=== PATIENT | male | born 1970 | race Caucasian/White ===

== ENCOUNTER 2016-06-22 10:42 | Emergency (ER) | payer OTHER ==
[~2016-06-22] VITALS: Ht 170.2 cm; Wt 63.5 kg
[~2016-06-22 10:42] MED LIST: FLUO20CA8 PO; OMEP20CA3 PO; RISP2TAB3 PO; TRAZ100T4 PO
[2016-06-22] MEDS: NS 1,000 ML IV ONE (12:12)
[2016-06-22 12:19] LABS: BASO % 1.1 % (0.0-1.0); EOS # 0.1 K/mm3 (0.0-0.50); EOS % 2.3 % (0.0-3.0); LARGE UNSTAINED CELL # 0.1 K/mm3 (0.0-0.4); LARGE UNSTAINED CELL % 2.7 % (0.0-4.0); LYMPH # 0.9 K/mm3 (1.5-4.5); LYMPH % 19.6 % (24.0-44.0); MEAN CORPUSCULAR HEMOGLOBIN 34.3 pg (27.0-33.0); MEAN CORPUSCULAR VOLUME 100.8 fl (80.0-96.0); MONO # 0.4 K/mm3 (0.0-0.8); MONO % 9.3 % (0.0-5.0); NEUTROPHILS # 2.7 K/mm3 (1.8-7.7); PLATELET COUNT, AUTOMATED 140 k/mm3 (150-450); RED CELL DISTRIBUTION WIDTH 12.4 % (11.5-14.5); WHITE BLOOD COUNT 4.2 K/mm3 (4.0-10.0)
[2016-06-22 12:35] LABS: INR 0.93
--- NOTE | 2016-06-22 12:41 | REP ---
BRAIN CT WITHOUT CONTRAST: HISTORY: Syncope. History of lung carcinoma. COMPARISON STUDY: March 09, 2016. Also reviewed is December 29, 2008 prior study. FINDINGS: Bone window settings demonstrate an intact bony calvarium. No bony destructive lesion is seen. The visualized paranasal sinuses are clear. There is mild distal carotid vascular calcification. Minimal diffuse cerebral atrophy is seen. There is no evidence of intracranial hemorrhage. No extra-axial fluid collection is seen. No mass, infarction, extra-axial fluid collection or midline shift is seen. IMPRESSION: Minimal diffuse atrophy and vascular calcification. No acute intracranial abnormality. Signed by Randall Solis MD 06/22/2016 02:04 P
[2016-06-22 12:43] LABS: ALBUMIN 3.9 GM/DL (3.2-5.2); ALBUMIN/GLOBULIN RATIO 1.22 (1.00-1.93); ALKALINE PHOSPHATASE 129 U/L (45-117); ALT/SGPT 138 U/L (12-78); ANION GAP 13 MEQ/L (8-16); AST/SGOT 104 U/L (15-37); BILIRUBIN,DIRECT 0.2 MG/DL (0.0-0.2); BILIRUBIN,TOTAL 0.4 MG/DL (0.2-1.0); BLOOD UREA NITROGEN 11 MG/DL (7-18); CALCIUM LEVEL 9.5 MG/DL (8.5-10.1); CARBON DIOXIDE LEVEL 24 MEQ/L (21-32); CHLORIDE LEVEL 100 MEQ/L (98-107); GLOMERULAR FILTRATION RATE > 60.0 (>60); GLUCOSE, FASTING 99 MG/DL (70-105); MAGNESIUM LEVEL 2.1 MG/DL (1.8-2.4); POTASSIUM SERUM 4.2 MEQ/L (3.5-5.1); SODIUM LEVEL 137 MEQ/L (136-145); TOTAL PROTEIN 7.1 GM/DL (6.4-8.2)
--- NOTE | 2016-06-22 13:21 | REP ---
Left TIB-fib series: Four views. History: Trauma. Findings: Four views of the left tibia and fibula demonstrate old posttraumatic deformity of the distal tibia and proximal fibula consistent with old fractures. No acute fracture is seen. There is some diffuse osteopenia. Impression: Old posttraumatic deformities. No acute fracture seen. Signed by Randall Solis MD 06/22/2016 02:04 P
--- NOTE | 2016-06-22 13:22 | REP ---
Left foot series: Four views. History: Trauma. Findings: Four views of the left foot show old posttraumatic deformity of the distal tibia. There is mild diffuse osteopenia. On lateral radiograph, there is a chip fracture which appears to be new along this dorsal surface of the tarsal navicular bone seen only on lateral radiograph. No other acute fracture is seen. Impression: Nondisplaced dorsal chip fracture of the tarsal navicular bone. Old posttraumatic changes. Diffuse osteopenia. Signed by Randall Solis MD 06/22/2016 02:04 P
[2016-06-22 13:42] VITALS: BP 162/91
--- NOTE | 2016-06-23 19:43 | ECGEPIP ---
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
== END 2016-06-22 14:02 | disposition home or self-care (01) ==
LOC: M ED 12:09
DX: S92.255A Nondisplaced fracture of navicular [scaphoid] of left foot, initial encounter for closed fracture (principal); R55 Syncope and collapse; X58.XXXA Exposure to other specified factors, initial encounter; Y92.89 Other specified places as the place of occurrence of the external cause; Y93.89 Activity, other specified; Y99.9 Unspecified external cause status

== ENCOUNTER 2016-06-28 17:17 | Emergency (ER) | payer OTHER ==
[~2016-06-28] VITALS: Ht 170.2 cm; Wt 64.9 kg
[2016-06-28] MEDS ORDERED: OXAZEPAM 15 MG CAP PO ONE (18:15)
[2016-06-28] MEDS ORDERED: amLODIPine 5 MG TAB PO ONE (18:15)
[2016-06-28 18:29] VITALS: BP 170/120
--- NOTE | 2016-06-28 20:40 | REPUSA ---
MRI of the lumbar spine without contrast Clinical statement: Pain. Technique: Multiecho multiplanar MRI images of the lumbar spine were obtained without administration of contrast. No comparison is available. Findings: The lumbar vertebral bodies are in satisfactory position and alignment. No fractures or dis locations are demonstrated. Normal heterogeneous bone marrow signal is noted. No osseous tumors are s een. The intervertebral disc heights are well maintained and demonstrate normal signal. The filum ter minale and conus medullaris appear unremarkable. The spinal cord demonstrates normal signal and conto ur. The surrounding soft tissues are within normal limits. The L1/L2 and L2/L3 disc levels are unremarkable. At L3/L4, there is a broad disc osteophyte complex and disc bulge. There is no evidence of disc herni ation or central canal stenosis. There is moderate bilateral neural foraminal narrowing. At L4/L5, there is a large disc bulge with left paracentral disc protrusion measuring 0.9 x 1.5 cm, c ausing severe mass effect on the left anterior thecal sac. There is moderately severe bilateral neura l foraminal narrowing. At L5/S1, there is a broad disc osteophyte complex and disc bulge, eccentric to the right paracentral region, causing significant mass effect on the right anterior thecal sac. There is no evidence of ce ntral canal stenosis. There is severe bilateral neural foraminal narrowing, worse on the right. Impression: 1. Large disc bulge with left paracentral disc protrusion at L4/L5, causing moderate central canal st enosis. Moderately severe bilateral neural foraminal narrowing. 2. Severe disc osteophyte complex and disc bulge at L5/S1 without evidence of central canal stenosis. Severe bilateral neural foraminal narrowing. 3. Moderate disc bulge at L3/L4 causing moderate bilateral neural foraminal narrowing.
[2016-06-28] MEDS ORDERED: dexameTHASONE 20 MG/5 ML VIAL (J1100) IM ONE (23:30)
[2016-06-28] MEDS ORDERED: dexameTHASONE 20 MG/5 ML VIAL (J1100) IV ONE (23:30)
[2016-06-28 23:36] VITALS: BP 117/83
== END 2016-06-28 23:46 | disposition home or self-care (01) ==
LOC: M ED 18:37
DX: M51.9 Unspecified thoracic, thoracolumbar and lumbosacral intervertebral disc disorder (principal); I10 Essential (primary) hypertension; F10.20 Alcohol dependence, uncomplicated; F17.210 Nicotine dependence, cigarettes, uncomplicated; J44.9 Chronic obstructive pulmonary disease, unspecified; Z85.118 Personal history of other malignant neoplasm of bronchus and lung; Z79.899 Other long term (current) drug therapy

== ENCOUNTER → 2016-06-29 | Outpatient (REF) | payer OTHER ==
[2016-06-29 12:43] LABS: ALBUMIN 4.3 GM/DL (3.2-5.2); ALBUMIN/GLOBULIN RATIO 1.39 (1.00-1.93); ALKALINE PHOSPHATASE 133 U/L (45-117); ALT/SGPT 408 U/L (12-78); ANION GAP 11 MEQ/L (8-16); AST/SGOT 290 U/L (15-37); BILIRUBIN,TOTAL 0.7 MG/DL (0.2-1.0); BLOOD UREA NITROGEN 9 MG/DL (7-18); CALCIUM LEVEL 9.6 MG/DL (8.5-10.1); CARBON DIOXIDE LEVEL 26 MEQ/L (21-32); CHLORIDE LEVEL 98 MEQ/L (98-107); CHOLESTEROL LEVEL 193 MG/DL (<200); GLOMERULAR FILTRATION RATE > 60.0 (>60); GLUCOSE, FASTING 149 MG/DL (70-105); POTASSIUM SERUM 4.6 MEQ/L (3.5-5.1); SODIUM LEVEL 135 MEQ/L (136-145); TOTAL PROTEIN 7.4 GM/DL (6.4-8.2); TRIGLYCERIDES LEVEL 65 MG/DL (<150)
[2016-06-29 12:52] LABS: BASO % 0.7 % (0.0-1.0); EOS % 0.5 % (0.0-3.0); LARGE UNSTAINED CELL # 0.1 K/mm3 (0.0-0.4); LYMPH # 0.5 K/mm3 (1.5-4.5); LYMPH % 17.4 % (24.0-44.0); MEAN CORPUSCULAR HEMOGLOBIN 34.4 pg (27.0-33.0); MEAN CORPUSCULAR HGB CONC 33.6 g/dl (32.0-36.5); MEAN CORPUSCULAR VOLUME 102.3 fl (80.0-96.0); MONO # 0.2 K/mm3 (0.0-0.8); MONO % 5.8 % (0.0-5.0); NEUTROPHILS # 1.9 K/mm3 (1.8-7.7); NEUTROPHILS % 73.5 % (36.0-66.0); PLATELET COUNT, AUTOMATED 163 k/mm3 (150-450); RED CELL DISTRIBUTION WIDTH 12.2 % (11.5-14.5); WHITE BLOOD COUNT 2.5 K/mm3 (4.0-10.0)
== END ==
LOC: M SFHCPLAZ 09:19
PROVIDERS: ATTEND Physician Assistant
DX: R79.89 Other specified abnormal findings of blood chemistry (principal)

== ENCOUNTER → 2016-07-18 | Outpatient (REF) | payer OTHER ==
[2016-07-18 14:14] LABS: TOTAL PROTEIN 7.3 GM/DL (6.4-8.2)
[2016-07-18 14:16] LABS: VITAMIN B12 LEVEL 532 PG/ML (247-911)
[2016-07-18 14:17] LABS: FOLATE 8.3 NG/ML (>5.4)
[2016-07-19 12:10] LABS: ALBUMIN % 65.8 % (55.8-66.1); GAMMA GLOBULIN % 9.4 % (11.1-18.8)
== END ==
LOC: M LABNEURO 12:55
PROVIDERS: ATTEND Psychiatry & Neurology Neurology
DX: G62.9 Polyneuropathy, unspecified (principal); E11.9 Type 2 diabetes mellitus without complications

== ENCOUNTER → 2016-07-24 | Outpatient (REF) | payer OTHER ==
[2016-07-24 11:40] LABS: ALBUMIN 4.1 GM/DL (3.2-5.2); ALBUMIN/GLOBULIN RATIO 1.37 (1.00-1.93); ALKALINE PHOSPHATASE 121 U/L (45-117); ALT/SGPT 124 U/L (12-78); ANION GAP 6 MEQ/L (8-16); AST/SGOT 110 U/L (15-37); BILIRUBIN,TOTAL 0.5 MG/DL (0.2-1.0); BLOOD UREA NITROGEN 10 MG/DL (7-18); CALCIUM LEVEL 8.9 MG/DL (8.5-10.1); CARBON DIOXIDE LEVEL 30 MEQ/L (21-32); CHLORIDE LEVEL 104 MEQ/L (98-107); CREATININE FOR GFR 0.61 MG/DL (0.70-1.30); GLOMERULAR FILTRATION RATE > 60.0 (>60); GLUCOSE, FASTING 81 MG/DL (70-105); POTASSIUM SERUM 4.3 MEQ/L (3.5-5.1); SODIUM LEVEL 140 MEQ/L (136-145); TOTAL PROTEIN 7.1 GM/DL (6.4-8.2)
== END ==
LOC: M SFHCPLAZ 08:46
PROVIDERS: ATTEND Physician Assistant
DX: R79.89 Other specified abnormal findings of blood chemistry (principal)

== ENCOUNTER → 2016-10-10 | Outpatient (REF) | payer OTHER ==
[~2016-10-10] MED LIST changes: +TRAZ-136 PO; -TRAZ100T4 PO
[2016-10-10 15:59] LABS: BASO # 0.1 K/mm3 (0.0-0.2); BASO % 1.6 % (0.0-1.0); EOS # 0.1 K/mm3 (0.0-0.50); EOS % 1.9 % (0.0-3.0); LARGE UNSTAINED CELL # 0.2 K/mm3 (0.0-0.4); LARGE UNSTAINED CELL % 4.5 % (0.0-4.0); LYMPH # 0.9 K/mm3 (1.5-4.5); LYMPH % 18.1 % (24.0-44.0); MEAN CORPUSCULAR HEMOGLOBIN 35.2 pg (27.0-33.0); MEAN CORPUSCULAR HGB CONC 34.4 g/dl (32.0-36.5); MEAN CORPUSCULAR VOLUME 102.4 fl (80.0-96.0); MONO # 0.5 K/mm3 (0.0-0.8); MONO % 11.3 % (0.0-5.0); NEUTROPHILS # 2.9 K/mm3 (1.8-7.7); NEUTROPHILS % 62.7 % (36.0-66.0); PLATELET COUNT, AUTOMATED 231 k/mm3 (150-450); RED CELL DISTRIBUTION WIDTH 12.7 % (11.5-14.5); WHITE BLOOD COUNT 4.7 K/mm3 (4.0-10.0)
[2016-10-10 16:16] LABS: ALBUMIN 3.8 GM/DL (3.2-5.2); ALBUMIN/GLOBULIN RATIO 1.23 (1.00-1.93); ALKALINE PHOSPHATASE 111 U/L (45-117); ALT/SGPT 121 U/L (12-78); ANION GAP 11 MEQ/L (8-16); AST/SGOT 89 U/L (15-37); BILIRUBIN,TOTAL 0.3 MG/DL (0.2-1.0); BLOOD UREA NITROGEN 13 MG/DL (7-18); CALCIUM LEVEL 9.1 MG/DL (8.5-10.1); CARBON DIOXIDE LEVEL 25 MEQ/L (21-32); CHLORIDE LEVEL 102 MEQ/L (98-107); CREATININE FOR GFR 0.52 MG/DL (0.70-1.30); GLOMERULAR FILTRATION RATE > 60.0 (>60); GLUCOSE, FASTING 91 MG/DL (70-105); POTASSIUM SERUM 4.1 MEQ/L (3.5-5.1); SODIUM LEVEL 138 MEQ/L (136-145); TOTAL PROTEIN 6.9 GM/DL (6.4-8.2)
== END ==
LOC: M LABDRAW1 15:38
PROVIDERS: ATTEND Physician Assistant
DX: R63.4 Abnormal weight loss (principal)

== ENCOUNTER → 2016-10-16 | Outpatient (CLI) | payer OTHER ==
[~2016-10-16] MED LIST changes: +ISOVUE-370 76% 100ML VIAL (Q9967) As Ordered ONE
--- NOTE | 2016-10-16 23:09 | REP ---
Clinical: New abnormal x-ray findings. Technique: Axial contrast enhanced images from the thoracic inlet to the upper abdomen using 100 ml Isovue 370 intravenous contrast material with coronal and sagittal re-formations. Comparison: 02/09/2016. Findings: Chronic post radiation type changes are appreciated along the medial and parahilar/paramediastinal left lung and right middle lobe which remain relatively stable when compared to prior examination. Subtle small area of increased soft tissue within the post radiation changes along the left major fissure (image 37) currently measuring approximately 14 mm previously measuring 8 mm. Small new subpleural density in the posterior right lower lobe (image 80) currently measuring approximately 10 mm. Underlying mild to moderate emphysematous changes remain stable. Mild subcarinal mediastinal and right hilar lymph nodes are unchanged. No pleural effusion. No pneumothorax. Mediastinum demonstrates normal thoracic aorta, pulmonary vasculature and heart/pericardium. Musculoskeletal structures are intact. Impression: Chronic post radiation type changes and moderate emphysematous changes similar to prior examination. Subtle increased soft tissue in the post radiation changes involving the left lung inseparable from the major fissure as well as subtle increased soft tissue in the subpleural right lower lobe. While these findings may represent progressive chronic changes, active pathology cannot be excluded and 3-6 month follow-up examination may be warranted. Signed by Cade Bermudez MD 10/16/2016 11:00 P
== END ==
LOC: M RAD 11:15
PROVIDERS: ATTEND Physician Assistant
DX: R91.8 Other nonspecific abnormal finding of lung field (principal); R93.8 Abnormal findings on diagnostic imaging of other specified body structures; C34.90 Malignant neoplasm of unspecified part of unspecified bronchus or lung

== ENCOUNTER → 2017-01-29 | Outpatient (REF) | payer OTHER ==
[~2017-01-29] MED LIST changes: -ISOVUE-370 76% 100ML VIAL (Q9967) As Ordered ONE
== END ==
LOC: M LAB REF 12:20
PROVIDERS: ATTEND Surgery
DX: L72.0 Epidermal cyst (principal)

== ENCOUNTER → 2017-05-22 | Outpatient (CLI) | payer OTHER | LOC: M RAD 08:55 | DX: R91.8 Other nonspecific abnormal finding of lung field (principal) | CPT/HCPCS: 71250 ==

== ENCOUNTER → 2017-05-28 | Outpatient (REF) | payer OTHER ==
[2017-05-28 18:21] LABS: PLATELET COUNT, AUTOMATED 161 10^3/uL (150-450)
[2017-05-28 18:31] LABS: INR 0.93; PROTHROMBIN TIME 12.5 SECONDS (12.4-14.5)
== END ==
LOC: M LAB REF 17:10
DX: R91.8 Other nonspecific abnormal finding of lung field (principal)

== ENCOUNTER → 2017-06-10 | Outpatient (CLI) | payer OTHER ==
[~2017-06-10] MED LIST changes: -FLUO20CA8 PO; +LIDOCAINE 1% MDV 20ML VIAL As Ordered; -OMEP20CA3 PO; -RISP2TAB3 PO; -TRAZ-136 PO
== END ==
LOC: M RADPRO 09:10
DX: R91.8 Other nonspecific abnormal finding of lung field (principal); J34.2 Deviated nasal septum; F17.218 Nicotine dependence, cigarettes, with other nicotine-induced disorders; I10 Essential (primary) hypertension; M54.9 Dorsalgia, unspecified; J01.00 Acute maxillary sinusitis, unspecified; Z79.899 Other long term (current) drug therapy; Z85.118 Personal history of other malignant neoplasm of bronchus and lung; Z86.59 Personal history of other mental and behavioral disorders
CPT/HCPCS: 32405

== ENCOUNTER → 2017-09-04 | Outpatient (CLI) | payer OTHER | LOC: M RAD 10:02 | DX: R91.8 Other nonspecific abnormal finding of lung field (principal) | CPT/HCPCS: 71250 ==

== ENCOUNTER → 2017-10-04 | Outpatient (CLI) | payer OTHER | LOC: M RADPRO 08:38 | DX: C34.90 Malignant neoplasm of unspecified part of unspecified bronchus or lung (principal); R91.8 Other nonspecific abnormal finding of lung field; Z79.899 Other long term (current) drug therapy | CPT/HCPCS: 32405 ==

== ENCOUNTER → 2017-10-22 | Outpatient (CLI) | payer OTHER | LOC: M PLARAD 15:36 | DX: C34.90 Malignant neoplasm of unspecified part of unspecified bronchus or lung (principal) | CPT/HCPCS: 78815 ==

== ENCOUNTER 2017-10-31 10:50 | Emergency (ER) | payer OTHER ==
[2017-10-31] MEDS: LIDOCAINE 1% MDV 20ML VIAL IM (13:30)
[2017-10-31] MEDS: ONDANSETRON 4 MG ORAL DISINTEGRATING TAB (Q0162 PER 1MG) PO (13:34)
== END 2017-10-31 14:16 | disposition home or self-care (01) ==
LOC: M ED 10:50
DX: L72.3 Sebaceous cyst (principal); I10 Essential (primary) hypertension; C34.90 Malignant neoplasm of unspecified part of unspecified bronchus or lung; Z79.899 Other long term (current) drug therapy; F17.210 Nicotine dependence, cigarettes, uncomplicated
CPT/HCPCS: Q0162

== ENCOUNTER → 2017-11-05 | Outpatient (CLI) | payer OTHER | LOC: M RAD 09:36 | DX: C34.91 Malignant neoplasm of unspecified part of right bronchus or lung (principal) ==

== ENCOUNTER → 2017-11-06 | Outpatient (CLI) | payer OTHER ==
[~2017-11-06] MED LIST changes: -LIDOCAINE 1% MDV 20ML VIAL As Ordered; +PROHANCE 279.3MG/ML 15ML VIAL (A9576) As Ordered
== END ==
LOC: M RAD 09:22
DX: C34.11 Malignant neoplasm of upper lobe, right bronchus or lung (principal)
CPT/HCPCS: A9576

== ENCOUNTER → 2017-11-26 | Outpatient (REF) | payer OTHER ==
[2017-11-26 14:45] LABS: THYROID STIMULATING HORMONE 0.925 uIU/ML (0.358-3.740)
== END ==
LOC: M LAB REF 13:53
DX: C78.01 Secondary malignant neoplasm of right lung (principal); Z85.118 Personal history of other malignant neoplasm of bronchus and lung; F17.200 Nicotine dependence, unspecified, uncomplicated; I10 Essential (primary) hypertension

== ENCOUNTER 2017-12-11 10:44 | Emergency (ER) | payer OTHER ==
[2017-12-11] MEDS: hydroCHLOROthiazide 25 MG TAB PO (11:23)
[2017-12-11 11:51] LABS: AMORPHOUS SEDIMENT RFX SMALL (NEGATIVE); KETONE, URINE AUTO RFX NEGATIVE (NEGATIVE); LEUKOCYTE ESTERASE UR AUTO RFX NEGATIVE (NEGATIVE); NITRITE, URINE AUTO RFX NEGATIVE (NEGATIVE); RBC, URINE AUTO RFX 2 /HPF (0-3); SPECIFIC GRAVITY UR AUTO RFX 1.012 (1.002-1.035); SQUAM EPITHELIAL CELL UR AURFX 0 /HPF (0-6); WBC, URINE AUTO RFX 1 /HPF (0-3)
[2017-12-11 11:56] LABS: BASO # 0.1 10^3/uL (0.0-0.2); BASO % 1.4 % (0.0-1.0); EOS # 0.1 10^3/uL (0.0-0.50); EOS % 1.2 % (0.0-3.0); HEMATOCRIT 38.3 % (42.0-52.0); HEMOGLOBIN 13.8 g/dl (13.5-17.5); IMMATURE GRANULOCYTE % 0.4 % (0-3.0); LYMPH # 0.8 10^3/uL (1.5-4.5); LYMPH % 15.9 % (24.0-44.0); MEAN CORPUSCULAR HEMOGLOBIN 35.5 pg (27.0-33.0); MEAN CORPUSCULAR VOLUME 98.5 fl (80.0-96.0); MONO # 0.7 10^3/uL (0.0-0.8); MONO % 14.1 % (0.0-5.0); NEUTROPHILS # 3.5 10^3/uL (1.8-7.7); PLATELET COUNT, AUTOMATED 221 10^3/uL (150-450); RED BLOOD COUNT 3.89 10^6/uL (4.30-6.10); RED CELL DISTRIBUTION WIDTH 11.9 % (11.5-14.5); WHITE BLOOD COUNT 5.2 10^3/uL (4.0-10.0)
[2017-12-11 12:28] LABS: ALBUMIN 4.1 GM/DL (3.2-5.2); ALBUMIN/GLOBULIN RATIO 1.21 (1.00-1.93); ALKALINE PHOSPHATASE 114 U/L (45-117); ALT/SGPT 151 U/L (12-78); ANION GAP 9 MEQ/L (8-16); AST/SGOT 96 U/L (7-37); BILIRUBIN,TOTAL 0.4 MG/DL (0.2-1.0); BLOOD UREA NITROGEN 9 MG/DL (7-18); CARBON DIOXIDE LEVEL 31 MEQ/L (21-32); CHLORIDE LEVEL 98 MEQ/L (98-107); CK-MB VALUE MASS 1.1 NG/ML (<3.6); CPK CREATINE PHOSPHOKINASE 227 U/L (39-308); CREATININE FOR GFR 0.57 MG/DL (0.70-1.30); GLOMERULAR FILTRATION RATE > 60.0 (>60); GLUCOSE, FASTING 106 MG/DL (70-100); MB/CK RELATIVE INDEX 0.48 (< OR =4); POTASSIUM SERUM 3.5 MEQ/L (3.5-5.1); SODIUM LEVEL 138 MEQ/L (136-145); TOTAL PROTEIN 7.5 GM/DL (6.4-8.2); TROPONIN I < 0.02 NG/ML (< 0.10)
[2017-12-11] MEDS: NS 1,000 ML IV (13:18)
[2017-12-11] MEDS: KETOROLAC 30 MG/ML VIAL (J1885) IV (13:19)
[2017-12-11] MEDS: ONDANSETRON 4MG/2ML VIAL (J2405) IV (13:19)
[2017-12-11] MEDS: METOPROLOL SUCC (TopROL XL) 50MG **XL** TAB PO (13:23)
[2017-12-11] MEDS: diphenhydrAMINE INJ 50MG/ML VIAL (J1200) IV (13:23)
== END 2017-12-11 14:30 | disposition home or self-care (01) ==
LOC: M ED 10:44
DX: R51 Headache (principal); I10 Essential (primary) hypertension; R94.31 Abnormal electrocardiogram [ECG] [EKG]; G31.9 Degenerative disease of nervous system, unspecified; I67.2 Cerebral atherosclerosis; C34.00 Malignant neoplasm of unspecified main bronchus; F33.9 Major depressive disorder, recurrent, unspecified; F17.200 Nicotine dependence, unspecified, uncomplicated; Z79.899 Other long term (current) drug therapy
CPT/HCPCS: J1200

== ENCOUNTER → 2017-12-24 | Outpatient (REF) | payer OTHER | LOC: M LAB REF 17:32 | DX: Z51.81 Encounter for therapeutic drug level monitoring (principal); Z79.899 Other long term (current) drug therapy; C78.01 Secondary malignant neoplasm of right lung; Z85.118 Personal history of other malignant neoplasm of bronchus and lung; F17.200 Nicotine dependence, unspecified, uncomplicated; I10 Essential (primary) hypertension; R74.0 Nonspecific elevation of levels of transaminase and lactic acid dehydrogenase [LDH] | CPT/HCPCS: 84443 ==

== ENCOUNTER → 2018-01-01 | Outpatient (REF) | payer OTHER | LOC: M LAB REF 13:39 | DX: K62.5 Hemorrhage of anus and rectum (principal) ==

== ENCOUNTER 2018-02-14 11:10 | Day surgery (SDC) | payer OTHER ==
[2018-02-14] MEDS: NS 1,000 ML IV ×2 (11:41)
[2018-02-14] MEDS ORDERED: LIDOCAINE 2% INJ 100 MG/5 ML SDV (FOR ANES.) As Ordered (11:46)
[2018-02-14] MEDS ORDERED: PROPOFOL 200 MG/20 ML VIAL As Ordered ×3 (11:46→13:11)
== END 2018-02-14 14:15 | disposition home or self-care (01) ==
LOC: M OPP 11:10
DX: K92.1 Melena (principal); R19.5 Other fecal abnormalities; R19.7 Diarrhea, unspecified; I10 Essential (primary) hypertension; J44.9 Chronic obstructive pulmonary disease, unspecified; C34.90 Malignant neoplasm of unspecified part of unspecified bronchus or lung; F20.0 Paranoid schizophrenia; M19.90 Unspecified osteoarthritis, unspecified site; F33.9 Major depressive disorder, recurrent, unspecified; F41.9 Anxiety disorder, unspecified; F17.210 Nicotine dependence, cigarettes, uncomplicated; Z98.890 Other specified postprocedural states; Z79.899 Other long term (current) drug therapy
CPT/HCPCS: 45378

== ENCOUNTER → 2018-03-20 | Outpatient (CLI) | payer OTHER ==
[~2018-03-20] MED LIST changes: +GASTROGRAFIN SOLUTION 30ML (Q9963) As Ordered; +ISOVUE-370 76% 100ML VIAL (Q9967) As Ordered; -PROHANCE 279.3MG/ML 15ML VIAL (A9576) As Ordered
== END ==
LOC: M RAD 09:39
DX: C34.31 Malignant neoplasm of lower lobe, right bronchus or lung (principal)
CPT/HCPCS: Q9963

== ENCOUNTER → 2018-04-28 | Outpatient (REF) | payer OTHER ==
[~2018-04-28] MED LIST changes: +BACI50OI TOP; +FLUO20CA8 PO; +GABA-843 PO; -GASTROGRAFIN SOLUTION 30ML (Q9963) As Ordered; +HYDR25TAB PO; +INCR1INH IN; +INCR1INH INH; -ISOVUE-370 76% 100ML VIAL (Q9967) As Ordered; +LISI10TA4 PO; +OMEP-221 PO; +OMEP20CA3 PO; +OMEP40CA2 PO; +RISP2TAB3 PO; +SPIR1CAP INH; +TRAZ-163 PO; +VENTAER INH; +ZOFR4TAB14 PO
[2018-04-28 16:04] LABS: BLOOD UREA NITROGEN 10 MG/DL (7-18); CALCIUM LEVEL 8.8 MG/DL (8.5-10.1); CARBON DIOXIDE LEVEL 27 MEQ/L (21-32); CHLORIDE LEVEL 99 MEQ/L (98-107); CHOLESTEROL LEVEL 197 MG/DL (<200); CREATININE FOR GFR 0.58 MG/DL (0.70-1.30); GLOMERULAR FILTRATION RATE > 60.0 (>60); GLUCOSE, FASTING 90 MG/DL (70-100); HDL CHOLESTEROL 86 MG/DL (>40); LDL CHOLESTEROL 93 MG/DL (<100); NON-HDL-C 111 MG/DL; POTASSIUM SERUM 4.3 MEQ/L (3.5-5.1); SODIUM LEVEL 136 MEQ/L (136-145); TRIGLYCERIDES LEVEL 92 MG/DL (<150)
[2018-04-28 17:57] LABS: CREATININE, URINE 98.8 MG/DL; MALB URINE SIEMENS 59.9 MG/L; MAU/CREAT RATIO 60.6 MCG/MG (0.0-30.0)
== END ==
LOC: M SFHCPLAZ 13:05
PROVIDERS: ATTEND Family Medicine
DX: I16.0 Hypertensive urgency (principal)

== ENCOUNTER → 2018-06-23 | Outpatient (CLI) | payer OTHER ==
[~2018-06-23] MED LIST changes: +PROHANCE 279.3MG/ML 15ML VIAL (A9576) As Ordered ONE
--- NOTE | 2018-06-23 14:23 | REP ---
MR BRAIN WITHOUT and with _ CONTRAST: HISTORY: Lung carcinoma. CONTRAST: ProHance 12.4 mL. COMPARISON: 11/06/2017 Areas of increased signal intensity on T2-weighted images are present in the periventricular and subcortical white matter. This represents small vessel ischemic disease. There is no intraparenchymal hemorrhage, infarct, mass, or midline shift. There is no abnormal enhancement. The ventricular system and cortical sulci are dilated, consistent with minimal volume loss. There is no extracerebral collection. Mucosal thickening is present in the left maxillary sinus. IMPRESSION: 1. Small vessel ischemic disease. 2. Minimal volume loss. Electronically Signed by Miguel Angel Jackson MD 06/23/2018 02:33 P
== END ==
LOC: M RAD 12:48
PROVIDERS: ATTEND Nurse Practitioner Family
DX: C34.31 Malignant neoplasm of lower lobe, right bronchus or lung (principal); C34.01 Malignant neoplasm of right main bronchus; I67.82 Cerebral ischemia; G31.9 Degenerative disease of nervous system, unspecified; R51 Headache
CPT/HCPCS: 70553; A9576

== ENCOUNTER → 2018-06-24 | Outpatient (CLI) | payer OTHER ==
[~2018-06-24] MED LIST changes: +GASTROGRAFIN SOLUTION 30ML (Q9963) As Ordered ONE; +ISOVUE-370 76% 125ML VIAL (Q9967 PER ML) As Ordered ONE; -PROHANCE 279.3MG/ML 15ML VIAL (A9576) As Ordered ONE
--- NOTE | 2018-06-25 07:02 | REP ---
Clinical: History of adenocarcinoma of the lung. Technique: Axial contrast enhanced images from the thoracic inlet to the upper abdomen with coronal and sagittal re-formations using 100 ml Isovue 370 intravenous contrast material. Comparison: 03/20/2018. Findings: Chronic COPD/emphysematous changes as well as chronic post radiation type fibrotic changes involving the left hemithorax remain essentially stable. Associated chronic bronchiectasis is also identified and similar to prior examination. No pleural effusion. No pneumothorax. No consolidation. There is a soft tissue lesion along the medial aspect of the right lung at the level of the franklin which now measures 1.7 x 1.8 x 1.3 cm has increased in size (images 44-49). A second pleural-based lesion along the posteromedial right lower lobe (images 80-92) has also increased in size and currently measures approximately 4.1 x 2.9 x 1.8 cm. No further obvious acute nodule or mass appreciated. Evaluation of the mediastinum demonstrates relatively stable appearance to the thoracic aorta, pulmonary vasculature and heart/pericardium. Subtle right hilar adenopathy and subtle soft tissue within the mediastinum appears relatively similar to prior examination. Osseous structures appear intact without focal osseous abnormality. Limited upper abdomen demonstrates normal bilateral adrenal glands. Impression: 1. Two pleural based soft tissue lesions in the right hemithorax have increased in size from prior examination and are concerning for metastatic foci/neoplasm. 2. Further chronic nonacute stable changes as described above. Electronically Signed by Cade Bermudez MD 06/25/2018 06:54 A
--- NOTE | 2018-06-25 07:33 | REP ---
Clinical: Adenocarcinoma of the lung. Technique: Axial contrast enhanced images from the lung bases to the pubic symphysis using oral contrast material (per protocol) and 100 ml Isovue 370 intravenous contrast material with delayed images of the abdomen as well as coronal and sagittal re-formations. Comparison: 03/20/2018. Findings: Please refer to chest CT for lung base evaluation. Liver, spleen, pancreas, gallbladder, bilateral adrenal glands and kidneys are normal. The enteric system is without obstruction or acute inflammatory process. Colonic diverticulosis noted without acute diverticulitis. Normal terminal ileum and appendix are identified in the right lower quadrant. Pelvis demonstrates normal bladder and age appropriate prostate/seminal vesicles. No ascites. No free air. No significant intraperitoneal or retroperitoneal adenopathy. No solitary mass lesion or metastatic disease identified. Atherosclerotic changes to the aorta and vasculature noted without aneurysm or dissection. Musculoskeletal structures demonstrate age-related changes without focal osseous abnormality. Impression: 1. Diverticulosis without acute diverticulitis. 2. No evidence for metastatic disease or mass lesion. 3. No acute abdominopelvic pathology identified. 4. Atherosclerotic changes to the aorta and vasculature. Electronically Signed by Cade Bermudez MD 06/25/2018 07:25 A
== END ==
LOC: M RAD 14:48
PROVIDERS: ATTEND Nurse Practitioner Family
DX: C34.01 Malignant neoplasm of right main bronchus (principal); R51 Headache; C34.31 Malignant neoplasm of lower lobe, right bronchus or lung
CPT/HCPCS: 71260; 74177; Q9963; Q9967

== ENCOUNTER → 2018-07-31 | Outpatient (CLI) | payer OTHER ==
[~2018-07-31] MED LIST changes: +CHLO125TA PO; +FLUO40CA PO; -GASTROGRAFIN SOLUTION 30ML (Q9963) As Ordered ONE; +ISOVUE-370 76% 100ML VIAL (Q9967) As Ordered ONE; -ISOVUE-370 76% 125ML VIAL (Q9967 PER ML) As Ordered ONE
--- NOTE | 2018-07-31 13:59 | REP ---
CT chest with IV contrast: History: Metastatic non-small cell lung carcinoma. Comparison CT studies are reviewed from June 24, 2018 and March 20, 2018. CT contrast dose: 75 mL of intravenous Isovue 370. CT findings: There is post-treatment fibrosis in the left perihilar region unchanged. Emphysematous changes are noted. No pleural or pericardial effusion is seen. No hilar or mediastinal mass or adenopathy is observed. The previously noted pleural based nodule along the azygoesophageal margin in the right lower lobe at the level of the right mainstem bronchus is again seen. This has enlarged further. Its greatest AP dimension today is 21 mm, previously 18 mm. It measures 14 mm in right to left dimension, previously 13 mm. Its craniocaudal span today is 25 mm. There has also been progression in pleural-based a right lower lobe lesion inferiorly. This measures up to 7.1 cm in craniocaudal span today. Its maximum anterior-posterior thickness is 21 mm, previously 16 on June 24, 2018 by my measurement. These two lesions have both enlarged somewhat since the most recent prior study. There are stable semi-solid nodular areas one in each upper lobe unchanged. No new pulmonary nodule is appreciated. No bony lesion is appreciated. There is evidence of diffuse fatty infiltration in the liver. No adrenal lesion is observed. Impression: There is some interval enlargement in the two pleural-based soft tissue lesions in the right chest in the interval since the June 24, 2018 study. Electronically Signed by Randall Solis MD 07/31/2018 02:10 P
== END ==
LOC: M RAD 12:34
PROVIDERS: ATTEND Internal Medicine Medical Oncology
DX: C34.31 Malignant neoplasm of lower lobe, right bronchus or lung (principal); C34.01 Malignant neoplasm of right main bronchus
CPT/HCPCS: 71260; Q9967

== ENCOUNTER 2018-08-14 11:57 | Observation (INO) | payer OTHER ==
[~2018-08-14] VITALS: Ht 170.2 cm; Wt 68.0 kg
[2018-08-14] MEDS: NICOTINE 14 MG/24 HR TRANSDERMAL TD SCH ×2 (09:00→22:54)
[~2018-08-14 11:57] MED LIST changes: -ISOVUE-370 76% 100ML VIAL (Q9967) As Ordered ONE
[2018-08-14] MEDS ORDERED: METO1TAB33 PO (12:09)
[2018-08-14] MEDS ORDERED: hydrALAZINE INJ 20 MG/ML VIAL IV PRN (12:45)
--- NOTE | 2018-08-14 13:21 | REP ---
Portable chest x-ray: Sitting AP view. History: Chest pain. Comparison chest x-ray: October 04, 2017. Findings: EKG monitoring electrodes overlie the chest. The lungs are symmetrically aerated and free of infiltrate. Heart is not enlarged. There is a somewhat spiculated parenchymal opacity in the left upper perihilar region adjacent to the transverse aorta unchanged from the previous study. This may be post radiation fibrosis. Lung oneil are otherwise clear. Impression: No new infiltrate. Electronically Signed by Randall Solis MD 08/14/2018 03:07 P
[2018-08-14] MEDS ORDERED: LORazepam 2 MG/ML VIAL (J2060) IV STA ×2 (13:23→16:22)
[2018-08-14] MEDS ORDERED: ONDANSETRON 4MG/2ML VIAL (J2405) IV ONE (13:30)
[2018-08-14 13:41] LABS: BASO # 0.1 10^3/uL (0.0-0.2); BASO % 1.2 % (0.0-1.0); EOS # 0.1 10^3/uL (0.0-0.50); HEMATOCRIT 40.3 % (42.0-52.0); HEMOGLOBIN 14.5 g/dl (13.5-17.5); LYMPH # 0.7 10^3/uL (1.5-4.5); LYMPH % 14.8 % (24.0-44.0); MEAN CORPUSCULAR HEMOGLOBIN 34.9 pg (27.0-33.0); MEAN CORPUSCULAR VOLUME 96.9 fl (80.0-96.0); MONO # 0.7 10^3/uL (0.0-0.8); MONO % 13.8 % (0.0-5.0); NEUTROPHILS # 3.3 10^3/uL (1.8-7.7); NEUTROPHILS % 68.6 % (36.0-66.0); PLATELET COUNT, AUTOMATED 184 10^3/uL (150-450); RED BLOOD COUNT 4.16 10^6/uL (4.30-6.10); WHITE BLOOD COUNT 4.9 10^3/uL (4.0-10.0)
[2018-08-14 14:00] LABS: BLOOD UREA NITROGEN 9 MG/DL (7-18); CALCIUM LEVEL 9.5 MG/DL (8.5-10.1); CARBON DIOXIDE LEVEL 24 MEQ/L (21-32); CHLORIDE LEVEL 103 MEQ/L (98-107); CK-MB VALUE MASS < 1.0 NG/ML (<3.6); CPK CREATINE PHOSPHOKINASE 141 U/L (39-308); CREATININE FOR GFR 0.54 MG/DL (0.70-1.30); GLOMERULAR FILTRATION RATE > 60.0 (>60); GLUCOSE, FASTING 99 MG/DL (70-100); MB/CK RELATIVE INDEX 0.71 (< OR =4); POTASSIUM SERUM 4.2 MEQ/L (3.5-5.1); SODIUM LEVEL 136 MEQ/L (136-145); TROPONIN I < 0.02 NG/ML (< 0.10)
[2018-08-14] MEDS ORDERED: cloNIDine HCL 0.1 MG/24 HR PATCH TOP ONE (16:15)
[2018-08-14] MEDS ORDERED: OXAZEPAM 15 MG CAP PO ONE (18:15)
[2018-08-14] MEDS ORDERED: IPRATROPIUM 0.5MG/ALBUTEROL 2.5MG INH SOL UD 3ML (DUONEB)(J7620) NEB PRN (18:45)
[2018-08-14] MEDS ORDERED: MOM 30ML SUSPENSION UDC PO PRN (18:45)
[2018-08-14] MEDS ORDERED: LORazepam 2 MG TAB PO PRN (18:45)
[2018-08-14] MEDS ORDERED: ACETAMINOPHEN TAB 650MG DOSE (2X325MG) PO PRN (18:45)
--- NOTE | 2018-08-14 18:54 | HPEPDOC ---
General Date of Admission 08/14/18 Attending Physician: INDIGO AGUILAR MD Chief Complaint The patient is a 48-year-old male admitted with a reason for visit of Blood Pressure Problem. Source: Patient Exam Limitations: Intoxication Timing/Duration: Unsure Severity: Moderate Associated Symptoms: Syncope, Dizziness, Other (tremors) Home Medications Scheduled Chlorthalidone (Chlorthalidone) 25 Mg Tablet, 25 MG PO DAILY, (Reported) Fluoxetine Hcl (Fluoxetine HCl) 40 Mg Capsule, 40 MG PO DAILY, (Reported) Metoprolol Succinate (Metoprolol Succinate) 100 Mg Tab.er.24h, 100 MG PO DAILY, (Reported) Omeprazole (Omeprazole) 40 Mg Cap, 40 MG PO DAILY, (Reported) Scheduled PRN Albuterol Sulfate (Ventolin Hfa) 108 Mcg/Act Aer, 2 PUFF INH Q4H PRN for WHEEZING, (Reported) Allergies Coded Allergies: No Known Drug Allergies (Verified Allergy, Unknown, 07/02/18) Past Medical History Medical History Hypertension. etoh abuse Surgical History Ankle surgery Social History * Smoker: current smoker, cigarettes Alcohol: heavy Drugs: denies A-FIB/CHADSVASC A-FIB History Current/History of A-Fib/PAF?: No Review of Systems Constitutional: Reports: Chills, Fatigue Eyes: Denies: Pain, Vision change, Conjunctivae inflammation, Eyelid inflammation, Redness, Other ENT: Denies: Head Aches, Ear Pain, Dysphagia, Sinus Congestion, Post Nasal Drip, Sore Throat, Epistaxis, Other Symptoms Skin: Denies: Rash, Lesions, Jaundice, Bruising, Itching, Dry, Breakdown, Nail Changes, Other Pulmonary: Denies: Dyspnea, Cough, Pleuritic Chest Pain, Other Symptoms Cardiovascular: Denies: Chest Pain, Palpitations, Orthopnea, Paroxysmal Noc. Dyspnea, Edema, Lt Headedness, Other Symptoms Gastrointestinal: Denies: Nausea, Vomiting, Abdominal Pain, Diarrhea, C onstipation, Melena, Hematochezia, Other Symptoms Genitourinary: Denies: Dysuria, Frequency, Incontinence, Hematuria, Retention, Other Symptoms Hematologic: Denies: Bruising, Bleeding Excessively, Petecchia, Purpura, Enlarged Lymph Nodes, Other Hematologic Endocrine: Denies: Polydipsia, Polyphagia, Polyuria, Heat Intolerance, Cold I ntolerance, Other Endocrine Sx Musculoskeletal: Denies: Neck Pain, Back Pain, Shoulder Pain, Arm Pain, Hand Pain, Leg Pain, Foot Pain, Joint Pain, Muscle Pain, Spasms, Other Symptoms Neurological: Reports: Weakness; Denies: Numbness, Incoordination, Change in speech, Confusion, Seizures, Other Symptoms Psych: Denies: Mood Normal, Anxiety, Depression, Memory Issues, Thoughts of Self Harm, Anger, Thoughts of Harming Other, Other Psych Physical Examination General Exam: Positive: Cooperative, No Acute Distress Eye Exam: Positive: PERRLA, Other Eye Symptoms ( red congested conjunctiva seen bilaterally) Neck Exam: Positive: Supple, JVD (no JVD) Chest Exam: Positive: Clear to auscultation, Normal air movement Heart Exam: Positive: Tachycardic, Normal S1, Normal S2 Telemetry: Positive: Tachycardia Abdomen Exam: Positive: Normal bowel sounds, Soft, Tenderness Extremity Exam: Positive: Clubbing (no clubbing, cyanosis or edema) Skin Exam: Positive: Nl turgor and temperature Neuro Exam: Positive: Normal Gait Psych Exam: Positive: Other (intoxicated) Vital Signs Vital Signs Date Time Temp Pulse Resp B/P (MAP) Pulse Ox O2 Delivery O2 Flow Rate FiO2 08/14/18 17:04 Room Air 08/14/18 16:46 132/80 08/14/18 16:45 115 96 08/14/18 12:18 98.6 18 Laboratory Data Labs 24H Laboratory Tests 2 08/14/18 13:23: Immature Granulocyte % (Auto) 0.6, White Blood Count 4.9, Red Blood Count 4.16L, Hemoglobin 14.5, Hematocrit 40.3L, Mean Corpuscular Volume 96.9H, Mean Corpuscular Hemoglobin 34.9H, Mean Corpuscular Hemoglobin Concent 36.0, Red Cell Distribution Width 12.8, Platelet Count 184, Neutrophils (%) (Auto) 68.6H, Lymphocytes (%) (Auto) 14.8L, Monocytes (%) (Auto) 13.8H, Eosinophils (%) (Auto) 1.0, Basophils (%) (Auto) 1.2H, Neutrophils # (Auto) 3.3, Lymphocytes # (Auto) 0.7L, Monocytes # (Auto) 0.7, Eosinophils # (Auto) 0.1, Basophils # (Auto) 0.1, Nucleated Red Blood Cells % (auto) 0.0, Anion Gap 9, Glomerular Filtration Rate > 60.0, Blood Urea Nitrogen 9, Creatinine 0.54L, Sodium Level 136, Potassium Level 4.2, Chloride Level 103, Carbon Dioxide Level 24, Calcium Level 9.5, Total Creatine Kinase 141, Creatine Kinase MB < 1.0, Creatine Kinase MB Relative Index 0.71, Troponin I < 0.02 CBC/BMP Laboratory Tests 08/14/18 13:23 Red Blood Count 4.16 L, Mean Corpuscular Volume 96.9 H, Mean Corpuscular Hemoglobin 34.9 H, Mean Corpuscular Hemoglobin Concent 36.0, Red Cell Distribution Width 12.8, Neutrophils (%) (Auto) 68.6 H, Lymphocytes (%) (Auto) 14.8 L, Monocytes (%) (Auto) 13.8 H, Eosinophils (%) (Auto) 1.0, Basophils (%) (Auto) 1.2 H, Neutrophils # (Auto) 3.3, Lymphocytes # (Auto) 0.7 L, Monocytes # (Auto) 0.7, Eosinophils # (Auto) 0.1, Basophils # (Auto) 0.1, Calcium Level 9.5, Total Creatine Kinase 141 Problems (1) Alcohol intoxication Status: Acute Problem Text: Admit to [facility] with telemetry Seizure precautions IV fluid normal saline at 100 mL per hour Orthotics 40 mg IV every 24 hours Thiamine, folic acid and multivitamins Benzodiazepine with CIWA protocol Repeat labs in a.m. Applied liquid patient daily Due to prophylaxis with Lovenox (2) HTN (hypertension) Status: Acute Problem Text: Blood pressure is under control right now Metaprel 50 mg by mouth twice a day Monitor vital signs Plan / VTE VTE Prophylaxis Ordered?: Yes INDIGO AGUILAR MD August 14, 2018 18:54
[2018-08-14] MEDS: NS 1,000 ML IV SCH ×5 (19:05→21:18)
[2018-08-14 20:10] VITALS: BP 158/98
[2018-08-14] MEDS: THIAMINE 100 MG TAB PO SCH (21:18)
[2018-08-14] MEDS: METOPROLOL SUCC (TopROL XL) 50MG **XL** TAB PO SCH (21:18)
[2018-08-14] MEDS: DOCUSATE SODIUM 100 MG CAP PO SCH (21:18)
[2018-08-15 00:10] VITALS: BP 138/94
[2018-08-15 04:00] VITALS: BP 142/90
[2018-08-15 05:05] LABS: HEMATOCRIT 37.3 % (42.0-52.0); HEMOGLOBIN 12.9 g/dl (13.5-17.5); MEAN CORPUSCULAR HEMOGLOBIN 34.4 pg (27.0-33.0); MEAN CORPUSCULAR HGB CONC 34.6 g/dl (32.0-36.5); MEAN CORPUSCULAR VOLUME 99.5 fl (80.0-96.0); PLATELET COUNT, AUTOMATED 167 10^3/uL (150-450); RED BLOOD COUNT 3.75 10^6/uL (4.30-6.10); WHITE BLOOD COUNT 4.7 10^3/uL (4.0-10.0)
[2018-08-15 05:33] LABS: ALBUMIN 3.4 GM/DL (3.2-5.2); ALT/SGPT 125 U/L (12-78); BILIRUBIN,TOTAL 0.7 MG/DL (0.2-1.0); BLOOD UREA NITROGEN 11 MG/DL (7-18); CALCIUM LEVEL 8.7 MG/DL (8.5-10.1); CARBON DIOXIDE LEVEL 24 MEQ/L (21-32); CHLORIDE LEVEL 106 MEQ/L (98-107); CREATININE FOR GFR 0.64 MG/DL (0.70-1.30); GLOMERULAR FILTRATION RATE > 60.0 (>60); GLUCOSE, FASTING 93 MG/DL (70-100); MAGNESIUM LEVEL 2.1 MG/DL (1.8-2.4); POTASSIUM SERUM 4.2 MEQ/L (3.5-5.1); SODIUM LEVEL 138 MEQ/L (136-145); TOTAL PROTEIN 6.7 GM/DL (6.4-8.2)
[2018-08-15 06:00] VITALS: BP 142/90
--- NOTE | 2018-08-15 07:19 | ECGEPIP ---
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
[2018-08-15 08:00] VITALS: BP 162/96
[2018-08-15 08:36] VITALS: BP 162/96
[2018-08-15] MEDS: METOPROLOL SUCC (TopROL XL) 50MG **XL** TAB PO SCH (08:36)
[2018-08-15] MEDS: DOCUSATE SODIUM 100 MG CAP PO SCH (08:36)
[2018-08-15] MEDS: THIAMINE 100 MG TAB PO SCH (08:36)
[2018-08-15] MEDS: NS 1,000 ML IV SCH (08:38)
[2018-08-15] MEDS: NICOTINE 14 MG/24 HR TRANSDERMAL TD SCH (08:38)
[2018-08-15] MEDS ORDERED: FOLIC ACID 1 MG TAB PO SCH (09:00)
[2018-08-15] MEDS ORDERED: MULTIVITAMINS/MINERALS THERAP 1 TAB PO SCH (09:00)
[2018-08-15] MEDS ORDERED: PANTOPRAZOLE 40MG INJ (PROTONIX) (C9113) IV SCH (09:00)
[2018-08-15] MEDS ORDERED: ENOXAPARIN 40 MG/0.4 ML SYRINGE (J1650) SC SCH (09:00)
--- NOTE | 2018-08-15 12:39 | DS.PDOC ---
Discharge Summary General Date of Admission August 14, 2018 at 18:37 Date of Discharge 08/15/18 Attending Physician: INDIGO AGUILAR MD Discharge Summary PROCEDURES PERFORMED DURING STAY: None. ADMITTING DIAGNOSES: 1. alcohol Intoxication. DISCHARGE DIAGNOSES: 1. Alcohol intoxication. COMPLICATIONS/CHIEF COMPLAINT: Alcohol Intoxication. HISTORY OF PRESENT ILLNESS: 89 years old white male with past medical history of alcohol abuse was admitted with the chief complaints of alcohol intoxication and unsteady on his feet. HOSPITAL COURSE: Patient was admitted to the [facility] floor with telemetry monitoring. He was started on IV fluids, folic acid, thiamine, B12 and multivitamin sup plementation. Patient was also started on benzodiazepine CIWA protocol. Patient this morning was still shaky and unsteady on his feet but he wanted to go home. He is alert, oriented 3 and he decided to sign out AMA and left the hospital. All risks of signing out AGAINST MEDICAL ADVICE were explained to him and he understands very well.. DISCHARGE MEDICATIONS: Please see below. ALLERGIES: Please see below. PHYSICAL EXAMINATION ON DISCHARGE: VITAL SIGNS: Please see below. GENERAL: Normal HEENT: PERRLA. Extraocular muscles intact NECK: Supple, no JVD CARDIOVASCULAR EXAMINATION:. S1, S2, regular RESPIRATORY EXAMINATION:, Clear to A&P ABDOMINAL EXAMINATION:. Benign EXTREMITIES: Clubbing, cyanosis SKIN: Normal NEUROLOGICAL EXAMINATION:, Benign tremors of bilateral upper extremities PSYCHIATRIC EXAMINATION: Alert, oriented 3, in no apparent distress, cooperative LABORATORY DATA: Please see below. IMAGING: None PROGNOSIS:. Good ACTIVITY: As tolerated. DIET: As tolerated DISCHARGE PLAN:. I note AMA DISPOSITION: 07 Against Medical Advice. DISCHARGE INSTRUCTIONS: 1. AGAINST MEDICAL ADVICE. ITEMS TO FOLLOWUP ON ON OUTPATIENT: 1. Yes medical advice. DISCHARGE CONDITION: Stable. TIME SPENT ON DISCHARGE: Greater than 20 minutes. Vital Signs/I&Os Vital Signs Date Time Temp Pulse Resp B/P (MAP) Pulse Ox O2 Delivery O2 Flow Rate FiO2 08/15/18 08:36 108 162/96 08/15/18 06:00 99.1 16 95 08/14/18 20:00 Room Air I&O- Last 24 Hours up to 6 AM 08/15/18 05:59 Intake Total 225 ml Output Total 0 ml Balance 225 ml Laboratory Data Labs 24H Laboratory Tests 2 08/14/18 13:23: Immature Granulocyte % (Auto) 0.6, White Blood Count 4.9, Red Blood Count 4.16L, Hemoglobin 14.5, Hematocrit 40.3L, Mean Corpuscular Volume 96.9H, Mean Corpuscular Hemoglobin 34.9H, Mean Corpuscular Hemoglobin Concent 36.0, Red Cell Distribution Width 12.8, Platelet Count 184, Neutrophils (%) (Auto) 68.6H, Lymphocytes (%) (Auto) 14.8L, Monocytes (%) (Auto) 13.8H, Eosinophils (%) (Auto) 1.0, Basophils (%) (Auto) 1.2H, Neutrophils # (Auto) 3.3, Lymphocytes # (Auto) 0.7L, Monocytes # (Auto) 0.7, Eosinophils # (Auto) 0.1, Basophils # (Auto) 0.1, Nucleated Red Blood Cells % (auto) 0.0, Anion Gap 9, Glomerular Filtration Rate > 60.0, Blood Urea Nitrogen 9, Creatinine 0.54L, Sodium Level 136, Potassium Level 4.2, Chloride Level 103, Carbon Dioxide Level 24, Calcium Level 9.5, Total Creatine Kinase 141, Creatine Kinase MB < 1.0, Creatine Kinase MB Relative Index 0.71, Troponin I < 0.02 08/15/18 04:48: Nucleated Red Blood Cells % (auto) 0.0, Anion Gap 8, Glomerular Filtration Rate > 60.0, Blood Urea Nitrogen 11, Creatinine 0.64L, Sodium Level 138, Potassium Level 4.2, Chloride Level 106, Carbon Dioxide Level 24, Calcium Level 8.7, Aspartate Amino Transf (AST/SGOT) 134H, Alanine Aminotransferase (ALT/SGPT) 125H, Alkaline Phosphatase 89, Total Bilirubin 0.7, Total Protein 6.7, Albumin 3.4, Magnesium Level 2.1, Albumin/Globulin Ratio 1.03 CBC/BMP Laboratory Tests 08/14/18 13:23 Red Blood Count 4.16 L, Mean Corpuscular Volume 96.9 H, Mean Corpuscular Hemoglobin 34.9 H, Mean Corpuscular Hemoglobin Concent 36.0, Red Cell Distribution Width 12.8, Neutrophils (%) (Auto) 68.6 H, Lymphocytes (%) (Auto) 14.8 L, Monocytes (%) (Auto) 13.8 H, Eosinophils (%) (Auto) 1.0, Basophils (%) (Auto) 1.2 H, Neutrophils # (Auto) 3.3, Lymphocytes # (Auto) 0.7 L, Monocytes # (Auto) 0.7, Eosinophils # (Auto) 0.1, Basophils # (Auto) 0.1, Calcium Level 9.5, Total Creatine Kinase 141 08/15/18 04:48 Red Blood Count 3.75 L, Mean Corpuscular Volume 99.5 H, Mean Corpuscular Hemoglobin 34.4 H, Mean Corpuscular Hemoglobin Concent 34.6, Red Cell Distribution Width 12.8, Calcium Level 8.7, Aspartate Amino Transf (AST/SGOT) 134 H, Alanine Aminotransferase (ALT/SGPT) 125 H, Alkaline Phosphatase 89, Total Bilirubin 0.7, Total Protein 6.7, Albumin 3.4 Discharge Medications Scheduled Chlorthalidone (Chlorthalidone) 25 Mg Tablet, 25 MG PO DAILY, (Reported) Fluoxetine Hcl (Fluoxetine HCl) 40 Mg Capsule, 40 MG PO DAILY, (Reported) Metoprolol Succinate (Metoprolol Succinate) 100 Mg Tab.er.24h, 100 MG PO DAILY, (Reported) Omeprazole (Omeprazole) 40 Mg Cap, 40 MG PO DAILY, (Reported) Scheduled PRN Albuterol Sulfate (Ventolin Hfa) 108 Mcg/Act Aer, 2 PUFF INH Q4H PRN for WHEEZING, (Reported) Allergies Coded Allergies: No Known Drug Allergies (Verified Allergy, Unknown, 07/02/18) INDIGO AGUILAR MD August 15, 2018 12:39
== END 2018-08-15 12:26 | disposition left against medical advice (07) ==
LOC: EDBD 11:57 → M ED 11:57 → M ED INP 18:37 → M MSPAV 20:11
PROVIDERS: ADMIT Internal Medicine; ATTEND Internal Medicine
DX: F10.120 Alcohol abuse with intoxication, uncomplicated (principal); I10 Essential (primary) hypertension; C34.90 Malignant neoplasm of unspecified part of unspecified bronchus or lung; K21.9 Gastro-esophageal reflux disease without esophagitis; F32.9 Major depressive disorder, single episode, unspecified; F17.210 Nicotine dependence, cigarettes, uncomplicated; Z79.899 Other long term (current) drug therapy
CPT/HCPCS: 36415; 71045; 80048; 80053; 82550; 82553; 83735; 85025; 85027; 93005; 93041; 94760; 96372; 96374; 96375; 96376; 99285; C9113; J1650; J2060; J2405

== ENCOUNTER 2019-05-15 22:32 | Inpatient (IN) | payer OTHER ==
[~2019-05-15] VITALS: Ht 170.2 cm; Wt 56.8 kg
[~2019-05-15 22:32] MED LIST changes: +FLUO20CA20 PO; -FLUO20CA8 PO; +METO1TAB33 PO; +OMEP1CAP73 PO; -OMEP20CA3 PO; -OMEP40CA2 PO; +OMEP40CA97 PO; -TRAZ-163 PO; +TRAZ-257 PO
[2019-05-15] MEDS ORDERED: BEVE1AER (22:46)
[2019-05-15] MEDS ORDERED: NS 1,000 ML IV SCH (23:01)
[2019-05-15 23:09] LABS: BASO # 0.1 10^3/uL (0.0-0.2); BASO % 0.3 % (0.0-1.0); EOS % 0.2 % (0.0-3.0); HEMATOCRIT 39.1 % (42.0-52.0); HEMOGLOBIN 13.4 g/dl (13.5-17.5); LYMPH % 6.7 % (24.0-44.0); MEAN CORPUSCULAR HEMOGLOBIN 31.3 pg (27.0-33.0); MEAN CORPUSCULAR HGB CONC 34.3 g/dl (32.0-36.5); MEAN CORPUSCULAR VOLUME 91.4 fl (80.0-96.0); MONO # 1.5 10^3/uL (0.0-0.8); MONO % 10.5 % (0.0-5.0); NEUTROPHILS % 81.7 % (36.0-66.0); PLATELET COUNT, AUTOMATED 316 10^3/uL (150-450); RED BLOOD COUNT 4.28 10^6/uL (4.30-6.10); WHITE BLOOD COUNT 14.7 10^3/uL (4.0-10.0)
[2019-05-15] MEDS ORDERED: ASPIRIN 81 MG CHEW TABLET PO ONE (23:15)
[2019-05-15 23:24] LABS: INR 1.16; PARTIAL THROMBOPLASTIN TIME 30.1 SECONDS (25.0-38.4); PROTHROMBIN TIME 14.5 SECONDS (11.8-14.0)
[2019-05-15 23:35] LABS: ALBUMIN 3.2 GM/DL (3.2-5.2); ALT/SGPT 32 U/L (12-78); BILIRUBIN,DIRECT 0.4 MG/DL (0.0-0.2); BILIRUBIN,TOTAL 0.9 MG/DL (0.2-1.0); BLOOD UREA NITROGEN 13 MG/DL (7-18); CALCIUM LEVEL 9.4 MG/DL (8.5-10.1); CARBON DIOXIDE LEVEL 26 MEQ/L (21-32); CHLORIDE LEVEL 83 MEQ/L (98-107); CK-MB VALUE MASS < 1.0 NG/ML (<3.6); CPK CREATINE PHOSPHOKINASE 104 U/L (39-308); CREATININE FOR GFR 0.73 MG/DL (0.70-1.30); GLOMERULAR FILTRATION RATE > 60.0 (>60); GLUCOSE, FASTING 107 MG/DL (70-100); LIPASE 45 U/L (73-393); MB/CK RELATIVE INDEX 0.96 (< OR =4); POTASSIUM SERUM 3.7 MEQ/L (3.5-5.1); SODIUM LEVEL 123 MEQ/L (136-145); TOTAL PROTEIN 7.1 GM/DL (6.4-8.2); TROPONIN I < 0.02 NG/ML (< 0.10)
[2019-05-16] MEDS ORDERED: ISOVUE-370 76% 100ML VIAL (Q9967) As Ordered ONE (00:37)
--- NOTE | 2019-05-16 01:10 | REPVR ---
PROCEDURE INFORMATION: Exam: CT Angiography Chest With Contrast Exam date and time: 05/15/2019 11:40 PM Age: 48 years old Clinical indication: Shortness of breath; Chest pain; Type not specified; Patient HX: Known stage 4 lung CA; Additional info: Chest pain, SOB TECHNIQUE: Imaging protocol: Computed tomographic angiography of the chest with intravenous contrast. 3D rendering: MIP and/or 3D reconstructed images were created by the technologist. Radiation optimization: All CT scans at this facility use at least one of these dose optimization techniques: automated exposure control; mA and/or kV adjustment per patient size (includes targeted exams where dose is matched to clinical indication); or iterative reconstruction. Contrast material: ISO; Contrast volume: 75 ml; Contrast route: AC COMPARISON: CT ANGIO CHEST 08/25/2013 9:[address] July 31, 2018 FINDINGS: Markedly progressive abnormality since the prior CT from July 31, 2018. Massive mediastinal and right infrahilar adenopathy with júnior mass measuring 8.5 cm transverse and 7 cm AP with 10 cm craniocaudal dimension. Inferior to this is right basilar pleural based mass or adenopathy measuring 7 x 6 cm cross-sectional and 9 cm craniocaudal with heterogeneous attenuation. Bilateral adrenal gland masses are present, with the right adrenal gland mass measuring 9 x 7 cm. The right hilar and infrahilar lesion encases bronchovascular structures, and there is peripheral consolidation in the right upper lobe which may be postobstructive and there may be lymphangitis tumor spread with interstitial septal thickening. Chronic bronchiectasis and scarring is seen within the left upper lobe and there is underlying centrilobular emphysema. No pulmonary edema, pleural effusion or pneumothorax. No pericardial effusion or cardiac enlargement. No thoracic aortic aneurysm or dissection. Central pulmonary arteries show no intraluminal defect suggestive of clot. Left upper lobe pulmonary arteries are attenuated by mass effect Bony structures show no acute fracture or destructive process. IMPRESSION: No evidence of acute pulmonary embolus. Extensive metastatic disease with mediastinal, right hilar and medial right lung base adenopathy or pleural metastases, right upper lobe postobstructive pneumonia or infiltrative tumor, and bilateral metastatic adrenal metastases. Electronically signed by: Louis Gregory On 05/16/2019 01:10:48 AM
[2019-05-16] MEDS ORDERED: PIPERACILLIN/TAZOBACTAM SOD 3.375 GM in D5W MINI-BAG PLUS 50 ML IV ONE (03:00)
[2019-05-16] MEDS ORDERED: LORazepam 2 MG/ML VIAL (J2060) IV PRN (03:45)
[2019-05-16] MEDS ORDERED: CEPACOL LOZENGE PO PRN (03:45)
[2019-05-16] MEDS ORDERED: ALBUTEROL SULFATE 2.5 MG/0.5 ML INH NEB SOLN INH PRN (03:45)
--- NOTE | 2019-05-16 03:49 | HPEPDOC ---
[facility] Medical History & Physical Date of Admission May 16, 2019 Date of Service: May 16, 2019 Attending Physician: SEVERO IVERSON MD History and Physical TIME OF SERVICE: 3:25 a.m. CHIEF COMPLAINT: Chest pain HISTORY OF PRESENT ILLNESS: This is a 48-year-old male with a known history recurrent lung cancer who declined further treatment for recurrence. He presents with complaints of 10 /10 in severity substernal nonradiating chest pain that is made worse by coughing and improved a little bit after receiving morphine in the ER. He has also feeling short of breath, having fevers and chills and a dry cough. 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 GERD Dyslipidemia. Status post lung biopsy SOCIAL HISTORY: He smokes tobacco and THC products he takes about a sixpack of alcohol per day; his last drink was 4 days ago FAMILY HISTORY: Mother had brain cancer. Brother had lung cancer ALLERGIES: Please see below. HOME MEDICATIONS: Please see below. PHYSICAL EXAMINATION: VITAL SIGNS: Please see below. GEN: Slim build/ well developed/ NAD INTEGUMENT: not flushed / he has excoriations on his cheek HEENT: NCAT / mucus membranes moist and pink CVS: RRR/NMRG/ no lower extremity edema LUNGS: able to speak full sentences without stopping to take a breath / coughs occasionally / has expiratory rhonchi ABDOMEN: Contour ( scaphoid) / soft & not tender with palpation MSK/EXTREMITIES: range of motion intact in all 4 extremities NEURO: CN 2-12 are grossly intact / speech is not dysarthric PSYCH: alert and oriented to person place and time/ able to understand and follow all commands LABORATORY DATA: See below. IMAGING: CT chest " FINDINGS: Markedly progressive abnormality since the prior CT from July 31, 2018. Massive mediastinal and right infrahilar adenopathy with júnior mass measuring 8.5 cm transverse and 7 cm AP with 10 cm craniocaudal dimension. Inferior to this is right basilar pleural based mass or adenopathy measuring 7 x 6 cm cross- sectional and 9 cm craniocaudal with heterogeneous attenuation. Bilateral adrenal gland masses are present, with the right adrenal gland mass measuring 9 x 7 cm. The right hilar and infrahilar lesion encases bronchovascular structures, and there is peripheral consolidation in the right upper lobe which may be postobstructive and there may be lymphangitis tumor spread with interstitial septal thickening. Chronic bronchiectasis and scarring is seen within the left upper lobe and there is underlying centrilobular emphysema. No pulmonary edema, pleural effusion or pneumothorax. No pericardial effusion or cardiac enlargement. No thoracic aortic aneurysm or dissection. Central pulmonary arteries show no intraluminal defect suggestive of clot. Left upper lobe pulmonary arteries are attenuated by mass effect. Bony structures show no acute fracture or destructive process. " MICROBIOLOGY: Please see below. ASSESSMENT: Mr. Chambers is a 48-year-old male with a past medical history of metastatic recurrent lung cancer, emphysema, HTN, tobacco, and alcohol abuse who is admitted for cancer related pain and postobstructive pneumonia. PLAN: 1. 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 SIRS secondary to Post obstructive Pneumonia in the setting of lung cancer Clinically he doesn't look septic SIRS criteria include heart rate of 121, and WBC count of 14.7 Received Zosyn and IV fluids in the ER Plan: Elevate head of bed/aspiration cautions/ supplemental O2/ f/u blood cx /switch to levofloxacin/ IVF / tessalon pearls / Acetaminophen PRN for fever 3. Asymptomatic hyponatremia Possibly due to SIADH in the setting of lung cancer and/or Beer-Potomania Plan: Follow-up BMP after IV fluids 4. Chronic emphysema - Plan: Albuterol when necessary with scheduled DuoNeb's 5. Chronic HTN - Plan: Fluoxetine DVT PROPHYLAXIS: Lovenox DISPOSITION: Home versus placement likely with hospice Vital Signs Vital Signs Date Time Temp Pulse Resp B/P (MAP) Pulse Ox O2 Delivery O2 Flow Rate FiO2 05/16/19 03:30 97.9 99 18 129/84 (99) 98 Room Air Laboratory Data Labs 24H Laboratory Tests 2 05/15/19 22:52: Immature Granulocyte % (Auto) 0.6, Neutrophils (%) (Auto) 81.7H, Lymphocytes (%) (Auto) 6.7L, Monocytes (%) (Auto) 10.5H, Eosinophils (%) (Auto) 0.2, Basophils (%) (Auto) 0.3, Neutrophils # (Auto) 12.0H, Lymphocytes # (Auto) 1.0L, Monocytes # (Auto) 1.5H, Eosinophils # (Auto) 0.0, Basophils # (Auto) 0.1, Nucleated Red Blood Cells % (auto) 0.0, Prothrombin Time 14.5H, Prothromb Time International Ratio 1.16, Activated Partial Thromboplast Time 30.1, Anion Gap 14, Glomerular F iltration Rate > 60.0, Calcium Level 9.4, Total Bilirubin 0.9, Direct Bilirubin 0.4H, Aspartate Amino Transf (AST/SGOT) 29, Alanine Aminotransferase (ALT/SGPT) 32, Alkaline Phosphatase 135H, Total Creatine Kinase 104, Creatine Kinase MB < 1.0, Creatine Kinase MB Relative Index 0.96, Troponin I < 0.02, Total Protein 7.1, Albumin 3.2, Albumin/Globulin Ratio 0.82L, Lipase 45L 05/15/19 23:03: POC Glucose (Misc Panel) 115H, POC Sodium (Misc Panel) 120L, POC Potassium (Misc Panel) 3.5, POC Chloride (Misc Panel) 83L, POC Total CO2 (Misc Panel) 25.0, POC Blood Urea Nitrogen (Misc Panel 13, POC Ionized Calcium (Misc Panel) 4.5, POC Creatinine (Misc Panel) 0.6, POC Hematocrit (Misc Panel) 42.0 CBC/BMP Laboratory Tests 05/15/19 22:52 Microbiology Microbiology 05/16/19 Blood Culture, Received Pending 05/16/19 Blood Culture, Received Pending Home Medications Scheduled Chlorthalidone (Chlorthalidone) 25 Mg Tablet, 25 MG PO DAILY Fluoxetine Hcl (Fluoxetine HCl) 40 Mg Capsule, 40 MG PO DAILY Omeprazole (Omeprazole) 40 Mg Cap, 40 MG PO DAILY Scheduled PRN Albuterol Sulfate (Ventolin Hfa) 108 Mcg/Act Aer, 2 PUFF INH Q4H PRN for WHEEZING Miscellaneous Medications Glycopyrrolate/Formoterol Fum (Bevespi Aerosphere Inhaler) 10.7 Gm Hfa.aer.ad Allergies Coded Allergies: No Known Drug Allergies (Verified Allergy, Unknown, 07/02/18) A-FIB/CHADSVASC A-FIB History Current/History of A-Fib/PAF?: No Current PO Anticoag Therapy: No SEVERO IVERSON MD May 16, 2019 03:49
[2019-05-16] MEDS: IPRATROPIUM 0.5MG/ALBUTEROL 2.5MG INH SOL UD 3ML (DUONEB)(J7620) INH SCH ×6 (04:00→23:56)
[2019-05-16] MEDS ORDERED: LORazepam 2 MG TAB PO PRN (04:15)
[2019-05-16 04:30] VITALS: BP 136/94
[2019-05-16] MEDS ORDERED: ACETAMINOPHEN 650MG ER TAB (TYLENOL ARTHRITIS) PO PRN (04:30)
[2019-05-16] MEDS ORDERED: LevoFLOXacin IV 750 MG in IV 1 EA IV SCH (05:00)
[2019-05-16] MEDS: MORPHINE 2 MG/ML 1ML VIAL (J2270) IV PRN ×2 (05:24→20:30)
--- NOTE | 2019-05-16 05:46 | ECGEPIP ---
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
[2019-05-16 06:00] VITALS: BP 136/94
[2019-05-16] MEDS: THIAMINE 100 MG TAB PO SCH ×2 (08:22→20:29)
[2019-05-16] MEDS: FOLIC ACID 1 MG TAB PO SCH (08:23)
[2019-05-16] MEDS: ENOXAPARIN 40 MG/0.4 ML SYRINGE (J1650) SC SCH (08:23)
[2019-05-16] MEDS: CHLORTHALIDONE 25 MG TAB PO SCH (08:23)
[2019-05-16] MEDS: MULTIVITAMINS/MINERALS THERAP 1 TAB PO SCH (08:23)
[2019-05-16] MEDS: FLUoxetine 20 MG CAP PO SCH (08:23)
--- NOTE | 2019-05-16 08:24 | REP ---
Clinical: Chest pain. Comparison: 08/14/2018. Findings: A large ovoid mass-like density is appreciated along the right hilum along with rounded mass-like density at the medial right base and area of alveolar infiltrate in the right upper lung zone. Chronic stable changes along the left suprahilar region. Cardiac silhouette is normal. No effusion. No pneumothorax. Skeletal structures intact. Impression: New large mass-like areas in the right hilar region and medial right lung base. New area of infiltrate involving the right upper lung zone. Electronically Signed by Cade Bermudez MD 05/16/2019 08:14 A
[2019-05-16] MEDS ORDERED: FLEET ENEMA PR PRN (09:15)
[2019-05-16] MEDS: SENOKOT S TAB PO SCH ×2 (09:43→20:29)
[2019-05-16 14:00] VITALS: BP 115/81
[2019-05-16] MEDS: MOM 30ML SUSPENSION UDC PO PRN (14:30)
--- NOTE | 2019-05-16 14:30 | IPNPDOC ---
Date Seen The patient was seen on 05/16/19. Progress Note SUBJECTIVE: Patient seen and examined this morning. States hes feeling relatively well but continues to have the chest pain in the mid-sternal area that stabbing in nature. He denies any worsening symptoms since hes been admitted. He does endorse that he would like to be DNR/DNI and is willing to talk to hospice for he unable to take care of himself. Lastly he does admit to having constipation and would like something. He denies any nausea, vomiting or chills. OBJECTIVE PHYSICAL EXAMINATION: VITAL SIGNS: Please see below. GENERAL: Depressed 48 year old male sitting up in bed awake alert oriented speaking in complete sentences no acute distress HEENT: Atraumatic, normocephalic Moist mucous membranes, No JVD CARDIOVASCULAR: S1 S2 tachycardia rate regular rhythm, no additional heart sounds appreciated. RESPIRATORY: Expiratory rhonchi R>L, left no accessory muscle use. Discomfort with deep inhalation only ABDOMINAL: Bowel sounds present abdomen soft and nontender EXTREMITIES: No clubbing cyanosis or edema NEUROLOGICAL: no gross focal deficits appreciated PSYCHOLOGICAL: Depressed LABORATORY DATA, MICROBIOLOGY: Please see below. IMAGING STUDIES: 05/15/2019 Chest Xray Impression: New large mass-like areas in the right hilar region and medial right lung base.New area of infiltrate involving the right upper lung zone. CT chest Impression: No evidence of acute pulmonary embolus. Extensive metastatic disease with mediastinal, right hilar and medial right lung base adenopathy or pleural metastases, right upper lobe postobstructive pneumonia or infiltrative tumor, and bilateral metastatic adrenal metastases. ASSESSMENT AND PLAN: This is a 48-year-old male with a pertinent past medical history of metastatic recurrent lung cancer, emphysema and alcohol abuse who presented with chest discomfort secondary to his cancer and postobstructive pneumonia. PROBLEMS: 1. Metastatic Lung cancer -In September 2013 initially diagnosed with stage IIIa adenocarcinoma of the left lung, treated with chemoradiation pemetrexed and cisplatin. 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 -Pleuritic chest pain likely secondary to lung cancer -CT angios of chest negative for pulmonary embolism -Currently have Tylenol and morphine on board for pain. 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 -Wishes to be DNR/DNI, Molst signed and in chart -Would like hospice consult, which has been placed 2. Postobstructive right pneumonia due to right lung cancer -Post-obstructive pneumonia is more commen in pt with advanced lung malignancy and is associated with substantial morbidity and mortality -tolerating PO, so we will transition to PO Levaquin 750 mg PO daily, end date: 05/22/2019 3. Asymptomatic Hyponatremia Euvolemia -s/p 1lNS from ER -no Urine OSM or sodium obtained prior to fluids, -will recheck Sodium levels in the AM, -possibly secondary to beer potomania -will monitor, 4. Chronic emphysema. -c/w Albuterol prn + otilia DuoNeb 5. Depression: -c/w Fluxetine 6. Alcohol Abuse -c/w CIWA protocol, folic acid, thaime + MVI 7. HTN -c/w Chlorthalidone 8. Constipation -Bowl care on board DVT prophylaxis: Lovenox DISPOSITION: Hospice Consult pending VS, I&O, 24H, [place] Vital Signs/I&O Vital Signs Date Time Temp Pulse Resp B/P (MAP) Pulse Ox O2 Delivery O2 Flow Rate FiO2 05/16/19 14:00 98.6 102 20 115/81 (92) 97 Room Air I&O- Last 24 Hours up to 6 AM 05/16/19 05:59 Intake Total 0 ml Balance 0 ml Laboratory Data 24H LABS Laboratory Tests 2 05/15/19 22:52: Immature Granulocyte % (Auto) 0.6, Neutrophils (%) (Auto) 81.7H, Lymphocytes (%) (Auto) 6.7L, Monocytes (%) (Auto) 10.5H, Eosinophils (%) (Auto) 0.2, Basophils (%) (Auto) 0.3, Neutrophils # (Auto) 12.0H, Lymphocytes # (Auto) 1.0L, Monocytes # (Auto) 1.5H, Eosinophils # (Auto) 0.0, Basophils # (Auto) 0.1, Nucleated Red Blood Cells % (auto) 0.0, Prothrombin Time 14.5H, Prothromb Time International Ratio 1.16, Activated Partial Thromboplast Time 30.1, Anion Gap 14, Glomerular Filtration Rate > 60.0, Calcium Level 9.4, Total Bilirubin 0.9, Direct Bilirubin 0.4H, Aspartate Amino Transf (AST/SGOT) 29, Alanine Aminotransferase (ALT/SGPT) 32, Alkaline Phosphatase 135H, Total Creatine Kinase 104, Creatine Kinase MB < 1.0, Creatine Kinase MB Relative Index 0.96, Troponin I < 0.02, Total Protein 7.1, Albumin 3.2, Albumin/Globulin Ratio 0.82L, Lipase 45L 05/15/19 23:03: POC Glucose (Misc Panel) 115H, POC Sodium (Misc Panel) 120L, POC Potassium (Misc Panel) 3.5, POC Chloride (Misc Panel) 83L, POC Total CO2 (Misc Panel) 25.0, POC Blood Urea Nitrogen (Misc Panel 13, POC Ionized Calcium (Misc Panel) 4.5, POC Creatinine (Misc Panel) 0.6, POC Hematocrit (Misc Panel) 42.0 05/16/19 04:44: Lactic Acid Level 1.7 CBC/BMP Laboratory Tests 05/15/19 22:52 Microbiology Microbiology 05/16/19 Blood Culture, Received Pending 05/16/19 Blood Culture, Received Pending GME ATTESTATION GME ATTESTATION My faculty preceptor for this patient encounter was physically present during the encounter and was fully available. All aspects of the patient interview, examination, medical decision making process, and medical care plan development were reviewed and approved by the faculty preceptor. The faculty preceptor is aware and concurs with the plan as stated in the body of this note and will attest to such by his/her cosignature. ATTENDING NOTE 48-year-old M with metastatic lung cancer, emphysema and alcohol use disorder who presented with chest discomfort likely 2/2 to his cancer and postobstructive pneumonia and placed on levaquin, with pain now well controlled and pending hospice consult. JONH MISTRY DO May 16, 2019 14:30 AMARI RICHARDSON MD May 17, 2019 07:23
[2019-05-16 22:00] VITALS: BP_SYST 121; BP_SYST 126; BP_DIAS 80; BP_DIAS 86
[2019-05-17] MEDS: IPRATROPIUM 0.5MG/ALBUTEROL 2.5MG INH SOL UD 3ML (DUONEB)(J7620) INH SCH ×5 (03:56→20:30)
[2019-05-17 06:00] VITALS: BP_SYST 119; BP_SYST 126; BP_DIAS 82
[2019-05-17] MEDS: LevoFLOXacin 750 MG TABLET PO SCH (06:13)
[2019-05-17 06:30] LABS: HEMOGLOBIN 12.2 g/dl (13.5-17.5); MEAN CORPUSCULAR HGB CONC 34.9 g/dl (32.0-36.5); MEAN CORPUSCULAR VOLUME 91.9 fl (80.0-96.0); PLATELET COUNT, AUTOMATED 311 10^3/uL (150-450); RED BLOOD COUNT 3.81 10^6/uL (4.30-6.10); WHITE BLOOD COUNT 8.2 10^3/uL (4.0-10.0)
[2019-05-17 06:53] LABS: BLOOD UREA NITROGEN 5 MG/DL (7-18); CALCIUM LEVEL 9.6 MG/DL (8.5-10.1); CARBON DIOXIDE LEVEL 28 MEQ/L (21-32); CHLORIDE LEVEL 85 MEQ/L (98-107); CREATININE FOR GFR 0.55 MG/DL (0.70-1.30); GLOMERULAR FILTRATION RATE > 60.0 (>60); GLUCOSE, FASTING 102 MG/DL (70-100); POTASSIUM SERUM 2.5 MEQ/L (3.5-5.1); SODIUM LEVEL 123 MEQ/L (136-145)
[2019-05-17] MEDS: CHLORTHALIDONE 25 MG TAB PO SCH (08:20)
[2019-05-17] MEDS: THIAMINE 100 MG TAB PO SCH ×2 (08:20→20:51)
[2019-05-17] MEDS: POTASSIUM CHLORIDE 10 MEQ SR TABLET PO SCH ×2 (08:20→20:52)
[2019-05-17] MEDS: FOLIC ACID 1 MG TAB PO SCH (08:20)
[2019-05-17] MEDS: SENOKOT S TAB PO SCH ×2 (08:20→20:51)
[2019-05-17] MEDS: MULTIVITAMINS/MINERALS THERAP 1 TAB PO SCH (08:20)
[2019-05-17] MEDS: FLUoxetine 20 MG CAP PO SCH (08:20)
[2019-05-17] MEDS: ENOXAPARIN 40 MG/0.4 ML SYRINGE (J1650) SC SCH (08:21)
[2019-05-17] MEDS: MORPHINE 2 MG/ML 1ML VIAL (J2270) IV PRN ×2 (08:21→18:19)
[2019-05-17] MEDS ORDERED: INFLUENZA QUADRIVALENT PF VACCINE 0.5ML SYRINGE (90686) IM ONE (09:00)
--- NOTE | 2019-05-17 11:37 | IPNPDOC ---
Text Note Date of Service The patient was seen on 05/17/19. NOTE SUBJECTIVE: -Feels ok this morning, pain is much better controlled. He is apprehensive about pain medications and really tries to not take them but we discussed that he has severe malignancy related chest pain and is the appropriate patient for this therapy. -Concerned about not being able to care for himself at home with frequent falls and sometimes fainting spells. Unfortunately his family has been unable to take him in and care for him as he has another very ill sibling who also has cancer and if open to discussing the idea of monitored living space/placement. OBJECTIVE PHYSICAL EXAMINATION: VITAL SIGNS: Please see below. GENERAL: NAD, pale HEENT: Atraumatic, normocephalic, MMM, no JVD CARDIOVASCULAR: S1 S2, RRR, no m/r/g RESPIRATORY: Scattered rhonchi R>L, left no accessory muscle use. ABDOMINAL: normoactive bowel sounds, NTND EXTREMITIES: No clubbing cyanosis or edema NEUROLOGICAL: no gross focal deficits appreciated PSYCHOLOGICAL: Depressed, flat affect LABORATORY DATA, MICROBIOLOGY: Please see below. Reviewed. K 2.5, repleted. Na 123 stable, Cr 0.55 IMAGING STUDIES: 05/15/2019 Chest Xray Impression: New large mass-like areas in the right hilar region and medial right lung base.New area of infiltrate involving the right upper lung zone. CT chest Impression: No evidence of acute pulmonary embolus. Extensive metastatic disease with mediastinal, right hilar and medial right lung base adenopathy or pleural metastases, right upper lobe postobstructive pneumonia or infiltrative tumor, and bilateral metastatic adrenal metastases. ASSESSMENT: 48-year-old M with metastatic lung cancer, emphysema and alcohol use disorder who presented with chest discomfort secondary to his cancer and postobstructive pneumonia, who pain is now well controlled, is on levaquin and is pending hospice consult. PROBLEMS: 1. Metastatic Lung cancer -In September 2013 initially diagnosed with stage IIIa adenocarcinoma of the left lung, treated with chemoradiation pemetrexed and cisplatin. 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 Pleuritic chest pain likely secondary to lung cancer vs. 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 Postobstructive right pneumonia due to right lung cancer -continue levaquin with end date of 05/22 -tolerating PO and is on room air 3. Asymptomatic Hyponatremia - chronic. -Is euvolemic on exam -s/p 1L NS in the ED -will monitor with daily BMP 4. Chronic emphysema. -c/w Albuterol prn + otilia DuoNeb 5. Depression: -c/w Fluoxetine 6. Alcohol Abuse -d/c CIWA protocol at this time -continue folic acid, thiamine 7. HTN -c/w Chlorthalidone 8. Constipation -Bowl care on board DVT prophylaxis: Lovenox DISPOSITION: Hospice and PFS Consult pending VS,Fishbone, I+O VS, Fishbone, I+O Laboratory Tests 05/17/19 05:54 Vital Signs Date Time Temp Pulse Resp B/P (MAP) Pulse Ox O2 Delivery O2 Flow Rate FiO2 05/17/19 08:31 18 05/17/19 06:00 97.4 97 126/82 (97) 94 Room Air I&O- Last 24 Hours up to 6 AM 05/17/19 06:00 Intake Total 2370 ml Output Total 975 ml Balance 1395 ml AMARI RICHARDSON MD May 17, 2019 11:37
[2019-05-17 14:00] VITALS: BP 120/82
[2019-05-17 18:10] VITALS: BP 132/91
[2019-05-17] MEDS ORDERED: diphenhydrAMINE 25 MG CAP PO ONE (21:00)
[2019-05-17 22:00] VITALS: BP 114/76
[2019-05-18] MEDS: IPRATROPIUM 0.5MG/ALBUTEROL 2.5MG INH SOL UD 3ML (DUONEB)(J7620) INH SCH ×6 (00:20→18:39)
[2019-05-18] MEDS: LevoFLOXacin 750 MG TABLET PO SCH (05:58)
[2019-05-18 06:00] VITALS: BP 116/75
[2019-05-18] MEDS: ENOXAPARIN 40 MG/0.4 ML SYRINGE (J1650) SC SCH (08:41)
[2019-05-18] MEDS: SENOKOT S TAB PO SCH ×2 (08:42→20:27)
[2019-05-18] MEDS: MULTIVITAMINS/MINERALS THERAP 1 TAB PO SCH (08:42)
[2019-05-18] MEDS: FOLIC ACID 1 MG TAB PO SCH (08:42)
[2019-05-18] MEDS: THIAMINE 100 MG TAB PO SCH ×2 (08:42→20:27)
[2019-05-18] MEDS: FLUoxetine 20 MG CAP PO SCH (08:43)
[2019-05-18] MEDS: CHLORTHALIDONE 25 MG TAB PO SCH (08:43)
[2019-05-18 08:44] VITALS: BP 113/77
[2019-05-18] MEDS ORDERED: INFLUENZA QUADRIVALENT PF VACCINE 0.5ML SYRINGE (90686) IM ONE (09:00)
[2019-05-18 10:03] LABS: BLOOD UREA NITROGEN 5 MG/DL (7-18); CALCIUM LEVEL 10.4 MG/DL (8.5-10.1); CARBON DIOXIDE LEVEL 29 MEQ/L (21-32); CHLORIDE LEVEL 84 MEQ/L (98-107); CREATININE FOR GFR 0.62 MG/DL (0.70-1.30); GLOMERULAR FILTRATION RATE > 60.0 (>60); GLUCOSE, FASTING 113 MG/DL (70-100); POTASSIUM SERUM 3.2 MEQ/L (3.5-5.1); SODIUM LEVEL 122 MEQ/L (136-145)
--- NOTE | 2019-05-18 11:18 | IPNPDOC ---
Text Note Date of Service The patient was seen on 05/18/19. NOTE Subjective: Patient is a 48-year-old male presented to the hospital for further management of his cancer pain. Patient has been diagnosed with lung cancer and says his oncologist told him that without treatment he probably has less than a year to live. Patient has already been diagnosed with lung cancer in the past and says he would like to seek consultation with hospice. Patient says he does have some pain however, he feels okay today. He says he is having some diffi culty eating as he has difficulty chewing because he has no teeth. Patient is also very concerned about going home as he is not able to take care of himself because he's had spells of passing out and falling. Objective: Vitals: (see below) General: No acute distress, laying comfortably in bed. HEENT: Normocephalic, atraumatic, moist mucous membranes. Cardiac: RRR, No murmurs Pulm: Diminished breath sounds bilaterally Abd: Mild tenderness in the lower quadrants bilaterally Ext: No edema bilateral lower extremities Labs (see below) Images: Imaging is performed Assessment: Patient is a 48-year-old male with metastatic lung cancer, emphysema, and alcohol use disorder and with chest discomfort secondary to his cancer and postobstructive pneumonia. Pain is better controlled and he is on Lev aquin. His pending hospice consult. Plan 1. Metastatic lung cancer. Initially diagnosed in September 2013 with stage IIIa adenocarcinoma of the left lung, treated with chemotherapy and radiation. In 2017 patient was diagnosed with PDL 1 poorly differentiated adenocarcinoma along with sarcoid features and intrathoracic metastasis with plan for treatment with pembrolizumab but he declined therapy. 2. Pleuritic chest pain likely secondary to lung cancer versus possible pneumonia. CT of the chest negative for PE. Currently on Tylenol morphine for pain. 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 3. Post obstructive right pneumonia due to lung cancer continue Levaquin with an date of 05/22/2019. Tolerating by mouth and is on room air. 4. Asymptomatic hyponatremia chronic is euvolemic on exam status post 1 L normal saline in the ED. We'll monitor with daily BMP. 5. Chronic emphysema. Continue with albuterol when necessary and scheduled DuoN eb. 6. Depression: Continue fluoxetine 7. Alcohol abuse: DC CIWA protocol at this time. Continue folic acid and thiamine. 8. Hypertension. Continue with chlorthalidone. 9. Constipation. Bowel care is on board. DVT prophy: Lovenox Dispo: Hospice and PFS consults pending VS,Fishbone, I+O VS, Fishbone, I+O Laboratory Tests 05/18/19 09:33 Vital Signs Date Time Temp Pulse Resp B/P (MAP) Pulse Ox O2 Delivery O2 Flow Rate FiO2 05/18/19 08:44 100 113/77 (89) 05/18/19 06:00 97.2 18 97 Room Air I&O- Last 24 Hours up to 6 AM 05/18/19 05:59 Intake Total 670 ml Output Total 600 ml Balance 70 ml GME ATTESTATION GME ATTESTATION My faculty preceptor for this patient encounter was physically present during the encounter and was fully available. All aspects of the patient interview, examination, medical decision making process, and medical care plan development were reviewed and approved by the faculty preceptor. The faculty preceptor is aware and concurs with the plan as stated in the body of this note and will attest to such by his/her cosignature. ATTENDING NOTE 48 yo man with lung CA not on treatment, as well as alcohol use disorder who presented with worsening chest pain that was determined to be malignancy related with suspicion of post obstructive PNA and placed on levaquin as well as morphine for pain control, now pending hospice and PFS consult for discharge planning. Of note, he had an episode of dysphagia and we are getting a swallow evaluation. KARSTEN WALTER DO May 18, 2019 11:18 AMARI RICHARDSON MD May 18, 2019 21:52
[2019-05-18] MEDS: MORPHINE 2 MG/ML 1ML VIAL (J2270) IV PRN ×2 (13:19→22:37)
[2019-05-18 14:00] VITALS: BP 118/81
[2019-05-18 22:00] VITALS: BP 118/82
[2019-05-19] MEDS: IPRATROPIUM 0.5MG/ALBUTEROL 2.5MG INH SOL UD 3ML (DUONEB)(J7620) INH SCH ×6 (00:19→20:00)
[2019-05-19] MEDS: RAMELTEON 8 MG TAB (ROZEREM) PO SCH ×2 (05:19→20:27)
[2019-05-19] MEDS: LevoFLOXacin 750 MG TABLET PO SCH (05:58)
[2019-05-19 06:00] VITALS: BP 115/83
[2019-05-19 06:00] LABS: HEMATOCRIT 38.1 % (42.0-52.0); HEMOGLOBIN 13.5 g/dl (13.5-17.5); MEAN CORPUSCULAR HEMOGLOBIN 32.1 pg (27.0-33.0); MEAN CORPUSCULAR HGB CONC 35.4 g/dl (32.0-36.5); MEAN CORPUSCULAR VOLUME 90.7 fl (80.0-96.0); PLATELET COUNT, AUTOMATED 338 10^3/uL (150-450); WHITE BLOOD COUNT 6.8 10^3/uL (4.0-10.0)
[2019-05-19] MEDS: ENOXAPARIN 40 MG/0.4 ML SYRINGE (J1650) SC SCH (10:05)
[2019-05-19] MEDS: MORPHINE 2 MG/ML 1ML VIAL (J2270) IV PRN (10:06)
[2019-05-19] MEDS: SENOKOT S TAB PO SCH ×2 (10:07→20:27)
[2019-05-19] MEDS: CHLORTHALIDONE 25 MG TAB PO SCH (10:07)
[2019-05-19] MEDS: POTASSIUM CHLORIDE 10 MEQ SR TABLET PO SCH ×2 (10:07→20:28)
[2019-05-19] MEDS: MULTIVITAMINS/MINERALS THERAP 1 TAB PO SCH (10:07)
[2019-05-19] MEDS: FLUoxetine 20 MG CAP PO SCH (10:07)
[2019-05-19] MEDS: FOLIC ACID 1 MG TAB PO SCH (10:08)
--- NOTE | 2019-05-19 13:22 | IPNPDOC ---
Text Note Date of Service The patient was seen on 05/19/19. NOTE SUBJECTIVE: -Feels ok this morning, pain is well controlled. OBJECTIVE PHYSICAL EXAMINATION: VITAL SIGNS: Please see below. GENERAL: NAD, pale HEENT: Atraumatic, normocephalic, MMM, no JVD CARDIOVASCULAR: S1 S2, RRR, no m/r/g RESPIRATORY: Scattered rhonchi R>L, left no accessory muscle use. ABDOMINAL: normoactive bowel sounds, NTND EXTREMITIES: No clubbing cyanosis or edema NEUROLOGICAL: no gross focal deficits appreciated PSYCHOLOGICAL: Depressed, flat affect LABORATORY DATA, MICROBIOLOGY: Please see below. Reviewed. K 3.2, repleted. Na 123 stable, Cr 0.55 IMAGING STUDIES: 05/15/2019 Chest Xray Impression: New large mass-like areas in the right hilar region and medial right lung base.New area of infiltrate involving the right upper lung zone. CT chest Impression: No evidence of acute pulmonary embolus. Extensive metastatic disease with mediastinal, right hilar and medial right lung base adenopathy or pleural metastases, right upper lobe postobstructive pneumonia or infiltrative tumor, and bilateral metastatic adrenal metastases. ASSESSMENT: 48-year-old M with metastatic lung cancer, emphysema and alcohol use disorder who presented with chest discomfort secondary to his cancer and postobstructive pneumonia, who pain is now well controlled, is on levaquin and ongoing hospice and PFS consultation with course c/b dysphagia and having swallow evaluation. PROBLEMS: 1. Metastatic Lung cancer -In September 2013 initially diagnosed with stage IIIa adenocarcinoma of the left lung, treated with chemoradiation pemetrexed and cisplatin. 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 Pleuritic chest pain likely secondary to lung cancer vs. possible PNA -CT angio of chest negative for pulmonary embolism -Currently have Tylenol and morphine on board for pain with PRN morphine -At this current time does not want to be [employer], but spoke with PFS and ultimately declined hospice and reported that he will move in with his sister 2. Postobstructive right pneumonia due to right lung cancer -continue levaquin with end date of 05/22 -tolerating PO and is on room air 3. Asymptomatic Hyponatremia - chronic. -Is euvolemic on exam -s/p 1L NS in the ED -will monitor with daily BMP 4. Dysphagia: -speech evaluation recommended pureed diet 5. Hypokalemia: Has ongoing repletion 4. Chronic emphysema. -c/w Albuterol prn + otilia DuoNeb 5. Depression: -c/w Fluoxetine 6. Alcohol Abuse -continue folic acid, thiamine 7. HTN -c/w Chlorthalidone 8. Constipation -Bowel care on board DVT prophylaxis: Lovenox DISPOSITION: Spoke with PFS , declined hospice at this time, plan is now to do PT/OT eval for discharge home with his sister. VS,Fishbone, I+O VS, Fishbone, I+O Laboratory Tests 05/18/19 09:33 05/19/19 05:32 Vital Signs Date Time Temp Pulse Resp B/P (MAP) Pulse Ox O2 Delivery O2 Flow Rate FiO2 05/19/19 06:00 98.0 100 18 115/83 (94) 96 Room Air I&O- Last 24 Hours up to 6 AM 05/19/19 06:00 Intake Total 1726 ml Output Total 0 ml Balance 1726 ml AMARI RICHARSDON MD May 19, 2019 08:35
[2019-05-19 14:00] VITALS: BP 123/86
[2019-05-19 22:00] VITALS: BP 121/87
[2019-05-20] MEDS: MORPHINE 2 MG/ML 1ML VIAL (J2270) IV PRN
[2019-05-20] MEDS: IPRATROPIUM 0.5MG/ALBUTEROL 2.5MG INH SOL UD 3ML (DUONEB)(J7620) INH SCH ×4 (04:11→12:00)
[2019-05-20] MEDS: LevoFLOXacin 750 MG TABLET PO SCH (05:04)
[2019-05-20] MEDS: MOM 30ML SUSPENSION UDC PO PRN (05:08)
[2019-05-20 06:00] VITALS: BP 123/86
[2019-05-20] MEDS: MULTIVITAMINS/MINERALS THERAP 1 TAB PO SCH (08:11)
[2019-05-20] MEDS: CHLORTHALIDONE 25 MG TAB PO SCH (08:11)
[2019-05-20] MEDS: FOLIC ACID 1 MG TAB PO SCH (08:11)
[2019-05-20] MEDS: FLUoxetine 20 MG CAP PO SCH (08:11)
[2019-05-20] MEDS: ENOXAPARIN 40 MG/0.4 ML SYRINGE (J1650) SC SCH ×2 (08:11→08:16)
[2019-05-20] MEDS: SENOKOT S TAB PO SCH (08:11)
[2019-05-20] MEDS ORDERED: SENN-52 PO (09:17)
[2019-05-20] MEDS ORDERED: LEVA750T7 PO (09:17)
[2019-05-20] MEDS ORDERED: ROXI1TAB2 PO (09:17)
[2019-05-20 10:38] LABS: BLOOD UREA NITROGEN 6 MG/DL (7-18); CALCIUM LEVEL 10.2 MG/DL (8.5-10.1); CARBON DIOXIDE LEVEL 29 MEQ/L (21-32); CHLORIDE LEVEL 83 MEQ/L (98-107); CREATININE FOR GFR 0.53 MG/DL (0.70-1.30); GLOMERULAR FILTRATION RATE > 60.0 (>56); GLUCOSE, FASTING 118 MG/DL (70-100); POTASSIUM SERUM 3.3 MEQ/L (3.5-5.1); SODIUM LEVEL 121 MEQ/L (136-145)
--- NOTE | 2019-05-20 13:24 | DS.PDOC ---
Discharge Summary General Date of Admission May 16, 2019 at 03:42 Date of Discharge 05/20/2019 Attending Physician: AMARI RICHARDSON MD Discharge Summary PROCEDURES PERFORMED DURING STAY: None ADMITTING DIAGNOSES: 1. Post obstructive PNA 2. Cancer related pain DISCHARGE DIAGNOSES: 1. Post obstructive PNA 2. Lung cancer related pain 3. COPD with emphysema 4. chronic HTN 5. GERD 6. Hyperlipidemia 7. History of metastatic stage 3b lung cancer in 2013 s/p chemoradiation, and later diagnosis of adenocarcinoma with sarcoid features of the lung in 2018 for which she declined treatment. 8. Alcohol use disorder COMPLICATIONS/CHIEF COMPLAINT: Cancer Related Pain, Pneumonia. HISTORY OF PRESENT ILLNESS: 48-year-old M who presented to the hospital with progressive chest pain and shortness of breath and found to have likely postobstructive PNA and lung cancer related pain with evidence of ACS or PE. HOSPITAL COURSE: On admission he was started on levaquin and given fluids for mild MARTÍNEZ and started on morphine for cancer related pain with improvement in his pain. His course was c/b noted dysphagia and aspiration for which he had a speech evaluation and recommended for pureed diet. He requested to speak with PFS and initially was considering hospice but after discussion with PFS and understanding how inpatient hospice is structured, he decided against it and decided that he would move in with his sister instead who lives in [facility] for help caring for himself that he reported that he has trouble with as he lives alone at this time. He reported episodic severe weakness and sometimes passing out such that he worries about living by himself and declined possible usp placement and will now be discharged home. His mobility was good and there was no concern of significant deconditioning that would make home discharge unsafe at this time. He is now being discharged with levaquin 750 once daily to complete a total 7 day course. DISCHARGE MEDICATIONS: Please see below. ALLERGIES: Please see below. PHYSICAL EXAMINATION ON DISCHARGE: VITAL SIGNS: Please see below. Objective: Vitals: see below General: No acute distress, sitting up in bed comfortably HEENT: Normocephalic, atraumatic, moist mucous membranes Cardiac: RRR, No murmurs Pulm: stable diminished breath sounds bilaterally with some scattered crackles, no rhonchi. Abd: Normoactive sounds, soft, NTND Ext: No edema bilateral lower extremities, WWP LABORATORY DATA: Please see below. IMAGIN05/15/2019 Chest Xray Impression: New large mass-like areas in the right hilar region and medial right lung base.New area of infiltrate involving the right upper lung zone. CT chest Impression: No evidence of acute pulmonary embolus. Extensive metastatic disease with mediastinal, right hilar and medial right lung base adenopathy or pleural metastases, right upper lobe postobstructive pneumonia or infiltrative tumor, and bilateral metastatic adrenal metastases. PROGNOSIS: Progressively poor ACTIVITY: As tolerated DIET: Pureed diet DISCHARGE PLAN: Home with sister to complete levaquin course and follow up with PCP and refer to palliative care for pain management DISPOSITION: Home with his sister. DISCHARGE INSTRUCTIONS: 1. Please complete the levaquin course. 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 ITEMS TO FOLLOWUP ON ON OUTPATIENT: 1. Cancer related pain DISCHARGE CONDITION: Stable TIME SPENT ON DISCHARGE: 43 minutes. Vital Signs/I&Os Vital Signs Date Time Temp Pulse Resp B/P (MAP) Pulse Ox O2 Delivery O2 Flow Rate FiO2 05/20/19 06:00 97.8 89 18 123/86 (98) 96 Room Air I&O- Last 24 Hours up to 6 AM 05/20/19 06:00 Intake Total 1350 ml Output Total 0 ml Balance 1350 ml Microbiology Microbiology 05/16/19 Blood Culture - Preliminary, Resulted No Growth after 72 hours. All specime... 05/16/19 Blood Culture - Preliminary, Resulted No Growth after 72 hours. All specime... Discharge Medications Scheduled Chlorthalidone (Chlorthalidone) 25 Mg Tablet, 25 MG PO DAILY, (Reported) Fluoxetine Hcl (Fluoxetine HCl) 40 Mg Capsule, 40 MG PO DAILY, (Reported) Levofloxacin (Levaquin) 750 Mg Tablet, 750 MG PO DAILY@06 Omeprazole (Omeprazole) 40 Mg Cap, 40 MG PO DAILY, (Reported) Sennosides/Docusate Sodium (Senna Plus Tablet) 1 Each Tablet, 2 TAB PO BID Scheduled PRN Albuterol Sulfate (Ventolin Hfa) 108 Mcg/Act Aer, 2 PUFF INH Q4H PRN for WHEEZING, (Reported) Oxycodone HCl (Roxicodone) 5 Mg Tablet, 1 TAB PO Q6HP PRN for pain Miscellaneous Medications Glycopyrrolate/Formoterol Fum (Bevespi Aerosphere Inhaler) 10.7 Gm Hfa.aer.ad, (Reported) Allergies Coded Allergies: No Known Drug Allergies (Verified Allergy, Unknown, 07/02/18) AMARI RICHARDSON MD May 20, 2019 09:12
== END 2019-05-20 15:33 | disposition home or self-care (01) | DRG 861 ==
LOC: M ED 22:32 → M ED INP 05-16 03:42 → ENRESERV 05-16 03:54 → M MSPAV 05-16 04:26
PROVIDERS: ADMIT Internal Medicine; ATTEND Internal Medicine
DX: G89.3 Neoplasm related pain (acute) (chronic) (principal); N17.9 Acute kidney failure, unspecified; J18.9 Pneumonia, unspecified organism; C79.71 Secondary malignant neoplasm of right adrenal gland; C79.72 Secondary malignant neoplasm of left adrenal gland; E22.2 Syndrome of inappropriate secretion of antidiuretic hormone; R65.10 Systemic inflammatory response syndrome (SIRS) of non-infectious origin without acute organ dysfunction; E87.1 Hypo-osmolality and hyponatremia; R13.10 Dysphagia, unspecified; C34.90 Malignant neoplasm of unspecified part of unspecified bronchus or lung; J43.9 Emphysema, unspecified; E78.5 Hyperlipidemia, unspecified; I10 Essential (primary) hypertension; K21.9 Gastro-esophageal reflux disease without esophagitis; F10.10 Alcohol abuse, uncomplicated; Z79.899 Other long term (current) drug therapy; F17.200 Nicotine dependence, unspecified, uncomplicated; K59.00 Constipation, unspecified; Z66 Do not resuscitate

== ENCOUNTER → 2019-06-10 | Outpatient (CLI) | payer OTHER ==
[~2019-06-10] MED LIST changes: +ATIV1TAB10 PO; +BEVE1AER; +CLAR1TAB13 PO; +HYOS0.1259 PO; +LEVA750T7 PO; +LORA0.5T5 PO; +MORP20SO PO; +NEUR100C PO; +PROHANCE 279.3MG/ML 15ML VIAL (A9576) As Ordered ONE; +ROXI1TAB2 PO; +SENN-52 PO; +SENN1TAB96 PO
--- NOTE | 2019-06-10 20:28 | REPVR ---
PROCEDURE INFORMATION: Exam: MR Thoracic Spine Without and With Contrast Exam date and time: 06/10/2019 7:24 PM Age: 49 years old Clinical indication: Condition or disease; Cancer, metastatic/secondary to thoracic bone; Additional info: Nsclc, new RT leg pain, mass in back TECHNIQUE: Imaging protocol: Multiplanar magnetic resonance images of the thoracic spine without and with intravenous contrast. Contrast material: PROHANCE; Contrast volume: 11 ml; Contrast route: IV; COMPARISON: No relevant prior studies available. FINDINGS: Vertebral body height and AP alignment is preserved. There is fatty marrow replacement involving T2 through T7, probable post radiation change. No evidence of discitis/osteomyelitis. No abnormal cord signal or cord expansion. No epidural fluid collection. No pathologic intrathecal enhancement. Posterior mediastinal mass or conglomerate adenopathy measures 9.3 by 4.8 by 6.0 centimetres. Mass demonstrates avid enhancement. Mediastinal adenopathy is incompletely visualized. Right lower lobe mass measuring 9.0 by 4.7 cm with invasion of the adjacent chest wall. There are multifocal small thoracic protrusions without significant central canal compromise. IMPRESSION: 1. Multifocal small thoracic protrusions without significant central canal compromise or cord compression. 2. Posterior mediastinal mass or conglomerate adenopathy as well as right lower lobe mass with chest wall invasion compatible with metastatic disease. Electronically signed by: Leeroy Mcbride On 06/10/2019 20:27:38 PM
--- NOTE | 2019-06-10 20:31 | REPVR ---
PROCEDURE INFORMATION: Exam: MR Lumbar Spine Without and With Contrast. Exam date and time: 06/10/2019 7:24 PM Age: 49 years old Clinical indication: Condition or disease; Cancer, metastatic (secondary site lumbar); Additional info: Nsclc, new RT leg pain, mass in back TECHNIQUE: Imaging protocol: Multiplanar magnetic resonance images of the lumbar spine without and with intravenous contrast. Contrast material: PROHANCE; Contrast volume: 11 ml; Contrast route: IV; COMPARISON: MRI-Spine, L.S. without con 06/28/2016 7:28 PM FINDINGS: Trace retrolisthesis of L5 on S1. Vertebral body heights are preserved. There is disc desiccation and mild disc space narrowing. No evidence of discitis/osteomyelitis. Conus medullaris terminates T12-L1. No epidural fluid collection. No pathologic intrathecal enhancement. L1-L2: Mild bilateral facet joint arthropathy without central or foraminal stenosis. L2-L3: Mild bilateral facet joint arthropathy without central or foraminal stenosis. L3-L4: Mild disc bulge and mild bilateral facet joint arthropathy. No significant central canal stenosis. There is mild bilateral foraminal stenosis. L4-L5: Mild disc bulge with superimposed shallow central protrusion with annular tear. Mild bilateral facet joint arthropathy. There is mild central canal stenosis and mild left foraminal stenosis. L5-S1: Mild disc bulge with superimposed right central to right subarticular protrusion with annular tear causing moderate right lateral recess stenosis with mass effect upon the traversing right S1 nerve root. No significant central canal stenosis. Moderate to severe bilateral foraminal stenosis. IMPRESSION: 1. Right central to right subarticular protrusion at L5-S1 causes moderate right lateral recess stenosis with mass effect upon the traversing right S1 nerve root. Finding may be contributory to the patient's right-sided symptomatology. 2. Additional degenerative findings as above. Electronically signed by: Leeroy Mcbride On 06/10/2019 20:31:40 PM
== END ==
LOC: M RAD 16:22
PROVIDERS: ATTEND Internal Medicine Medical Oncology
DX: C34.31 Malignant neoplasm of lower lobe, right bronchus or lung (principal); M79.604 Pain in right leg; R22.2 Localized swelling, mass and lump, trunk
CPT/HCPCS: 72157; 72158; A9576

== ENCOUNTER → 2019-07-30 | Outpatient (CLI) | payer OTHER ==
[~2019-07-30] MED LIST changes: -PROHANCE 279.3MG/ML 15ML VIAL (A9576) As Ordered ONE
--- NOTE | 2019-07-30 17:36 | REPPI ---
Clinical: Chronic pain. Technique: AP and lateral views of the right foot. Findings: Osseous structures, joint spaces, and surrounding soft tissues are relatively age-appropriate. Mild increased sclerosis and minimal joint space narrowing at the first tarsometatarsal and metatarsophalangeal joint is appreciated along with very mild joint space narrowing of the first through fifth interphalangeal joints. No acute fracture dislocation. No subcutaneous emphysema. Ankle swelling suggested. Impression: 1. Ankle swelling. 2. Essentially age-related degenerative changes. Electronically Signed by Cade Bermudez MD 07/30/2019 05:28 P
--- NOTE | 2019-07-30 17:37 | REPPI ---
Clinical: Pain. Technique: AP and lateral views of the right ankle. Findings: Moderate to significant generalized soft tissue swelling noted. The osseous structures and joint spaces appear intact and age appropriate. No subcutaneous emphysema or foreign body. No obvious acute fracture or dislocation. Impression: Soft-tissue swelling. Electronically Signed by Cade Bermudez MD 07/30/2019 05:29 P
--- NOTE | 2019-07-30 17:42 | REPPI ---
Clinical: History of metastatic lung cancer. Technique: AP and frog lateral views of the right femur. Findings: There is an aggressive lytic lesion causing irregular destructive changes of the mid humeral shaft extending through the cortex and measuring roughly 7.1 cm in craniocaudal length along with smaller adjacent satellite lytic lesions in the adjacent cortex. There also appears to be a similar destructive lesion along the medial lateral cortex of the proximal femoral metaphysis measuring roughly 3.4 cm in craniocaudal length. Impression: Progressive malignant osseous lesions consistent with metastatic disease. Electronically Signed by Cade Bermudez MD 07/30/2019 05:34 P
== END ==
LOC: M PLALAB 13:39
PROVIDERS: ATTEND Family Medicine
DX: G89.4 Chronic pain syndrome (principal); C34.90 Malignant neoplasm of unspecified part of unspecified bronchus or lung; M79.89 Other specified soft tissue disorders; M19.071 Primary osteoarthritis, right ankle and foot; C79.51 Secondary malignant neoplasm of bone

== ENCOUNTER 2019-08-11 11:42 | Observation (INO) | payer OTHER ==
[~2019-08-11] VITALS: Ht 170.2 cm; Wt 62.3 kg
[2019-08-11] MEDS: HYDROMORPHONE HCL 0.5 MG/ 0.5 ML SYRINGE (J1170 PER 1) IV PRN ×2 (12:34→13:57)
[2019-08-11 12:42] LABS: BASO % 0.3 % (0.0-1.0); EOS % 0.1 % (0.0-3.0); HEMATOCRIT 40.7 % (42.0-52.0); HEMOGLOBIN 13.8 g/dl (13.5-17.5); LYMPH # 0.6 10^3/uL (1.5-5.0); LYMPH % 4.1 % (24.0-44.0); MEAN CORPUSCULAR HEMOGLOBIN 30.3 pg (27.0-33.0); MEAN CORPUSCULAR HGB CONC 33.9 g/dl (32.0-36.5); MEAN CORPUSCULAR VOLUME 89.3 fl (80.0-96.0); MONO # 0.7 10^3/uL (0.0-0.8); MONO % 5.3 % (0.0-5.0); NEUTROPHILS # 11.7 10^3/uL (1.5-8.5); NEUTROPHILS % 87.4 % (36.0-66.0); PLATELET COUNT, AUTOMATED 217 10^3/uL (150-450); RED BLOOD COUNT 4.56 10^6/uL (4.30-6.10); WHITE BLOOD COUNT 13.3 10^3/uL (4.0-10.0)
[2019-08-11 13:09] LABS: BLOOD UREA NITROGEN 14 MG/DL (7-18); CALCIUM LEVEL 9.4 MG/DL (8.5-10.1); CARBON DIOXIDE LEVEL 26 MEQ/L (21-32); CHLORIDE LEVEL 94 MEQ/L (98-107); CK-MB VALUE MASS 2.3 NG/ML (<3.6); CPK CREATINE PHOSPHOKINASE 53 U/L (39-308); CREATININE FOR GFR 0.32 MG/DL (0.70-1.30); GLOMERULAR FILTRATION RATE > 60.0 (>56); GLUCOSE, FASTING 84 MG/DL (70-100); MB/CK RELATIVE INDEX 4.34 (< OR =4); POTASSIUM SERUM 4.2 MEQ/L (3.5-5.1); SODIUM LEVEL 129 MEQ/L (136-145)
[2019-08-11 13:40] LABS: TROPONIN I < 0.02 NG/ML (< 0.10)
--- NOTE | 2019-08-11 14:10 | REP ---
CHEST X-RAY: Two views. HISTORY: Trauma. Non-small cell lung carcinoma. COMPARISON CHEST X-RAY: May 15, 2019. FINDINGS: There is progressive enlargement of the right mediastinal, subcarinal, and right lower lobe soft tissue mass components which were previously observed. These are larger. There is progressive opacification and volume loss in the right upper lobe consistent with postobstructive pneumonia and/or atelectasis. The left hilus shows upward retraction and some perihilar fibrosis and air bronchograms as well. There is no evidence of pneumothorax or hydrothorax. Heart is not felt to be enlarged. IMPRESSION: Bulky mass in the right lower lobe with bulky subcarinal right paratracheal and left mediastinal adenopathy. Progressive opacification and volume loss in the upper lobes and perihilar regions bilaterally, particularly on the right suggesting postobstructive and/or postradiation therapy changes. There is no evidence of pneumothorax or hydrothorax. Electronically Signed by aRndall Solis MD 08/11/2019 04:40 P
--- NOTE | 2019-08-11 14:11 | REP ---
RIGHT FEMUR: Two views. HISTORY: Trauma. FINDINGS: Two views of the right femur demonstrate a pathologic fracture through a permeative destructive lesion in the mid shaft of the right femur with posterior displacement and overriding. Vascular calcification and soft tissue swelling are noted. IMPRESSION: Pathologic midshaft fracture right femur through a lesion consistent with metastasis. There is posterior override and displacement. Electronically Signed by Randall Solis MD 08/11/2019 04:40 P
--- NOTE | 2019-08-11 14:12 | REP ---
Pelvis bilateral hip study: Five views. History: Trauma. Findings: AP view of the pelvis demonstrates a splint device overlying the right hemipelvis. There is no evidence of pelvic or sacral fracture. No hip fracture is seen. The femoral heads are smooth and rounded. AP and frog-leg views of the left hip and AP and lateral views of the right hip are obtained. No proximal femur fracture or bony destructive lesion is seen. Impression: No pelvic or proximal femur fracture seen. Electronically Signed by Randall Solis MD 08/11/2019 02:04 P
[2019-08-11] MEDS ORDERED: LORA-436 PO (14:21)
[2019-08-11] MEDS ORDERED: CHLO25TA38 PO ×2 (14:21)
[2019-08-11] MEDS ORDERED: DEXA4TA PO (14:21)
[2019-08-11] MEDS ORDERED: ALBU83IN INH (14:21)
[2019-08-11] MEDS ORDERED: DULO60CA35 PO (14:21)
[2019-08-11] MEDS ORDERED: BISA5TAB13 PO (14:21)
[2019-08-11] MEDS ORDERED: OMEP-221 PO (14:21)
[2019-08-11] MEDS ORDERED: LASI40TA9 PO (14:21)
[2019-08-11] MEDS ORDERED: MORP30TASA PO (14:21)
[2019-08-11] MEDS ORDERED: PATIENT COMMENT (14:23)
--- NOTE | 2019-08-11 16:29 | CR ---
DATE: 08/11/2019 CHIEF COMPLAINT: Right pathologic femur fracture. HISTORY OF PRESENT ILLNESS: This 49-year-old man was seen today in the emergency department at [facility]. He was trying to get into the bath today at around noon, there was a sudden pop and anterior midthigh pain and inability to ambulate. He was brought in by the emergency medical services (EMS). He has been having mid thigh pain for one or two months at least he says. He did have x-rays dating back from about a month ago showing a lesion in the mid femur. PAST MEDICAL HISTORY: From the chart includes adenocarcinoma of the lung, metastatic. I spoke with his oncologist, Dr. Stephanie Keating. He has [id number] lung CA. This is diffusely metastatic. He is currently under hospice care. He also, according to the chart, has chronic Major depressive disorder (MDD)/paranoid schizophrenia, a history of alcohol abuse, as well as hypertension, chronic obstructive pulmonary disease (COPD), thoracolumbar spondylosis - multilevel. MEDICATIONS INCLUDE: Ventolin, albuterol, loratadine, clonidine, nicotine patch, omeprazole, hyoscyamine, morphine, Haldol, Lasix, guaifenesin, chlorpromazine, MS Contin, Cymbalta, Dulcolax, dexamethasone. ALLERGIES: No known drug allergies. SURGICAL HISTORY: Lung biopsy, stage III. SOCIAL HISTORY: He currently smokes a pack of cigarettes a day. He does drink alcohol; he drinks beer. He lives with his sister. Her name is Sherley. Her phone number is [phone]. PHYSICAL EXAM: Thin appearing 49-year-old man, in no acute distress. He is lying supine in bed. He is alert and oriented. He responds appropriately. He has no other injuries. His right lower extremity is in Cali's traction. . He has diffuse lower extremity edema. Foot is warm and well perfused. Cap refill under 3 seconds. Able to wiggle his toes. He has obvious pain. No obvious deformity at the right femur. Skin is intact. Radiographs were reviewed of the right hip, AP and lateral including the pelvis. He has a proximal femur fracture, although there is a likely small lytic lesion at the level of the lesser trochanter on the medial side of the proximal femur. The Cali's traction partially obscures the right hip. No obvious femoral neck fracture. Femur x-rays, AP and lateral, reveal a pathologic midshaft right femur fracture through a lesion consistent with metastatic disease. There is also femur x-ray from 07/30/2019, and this shows a midshaft lytic lesion that extends at least half way if not two-thirds of the width of the femoral cortex. LAB WORK: Hemoglobin 13.8, potassium 4.2, calcium 9.4. Coagulation factors not performed and so I will go ahead and order those. ASSESSMENT/PLAN: This is a 49-year-old man with advanced metastatic [id number] lung CA, now with a new pathologic right femur fracture. He is on hospice care. His options were discussed, include open reduction internal fixation of the right femur with intramedullary nail spanning the entire length of the bone for stability versus nonsurgical care and pain control with medications. I recommend surgical fixation for palliation in terms of his pain and to help with mobility, however receiving an anesthetic and performing surgery is high risk in this patient. Risks of nonsurgical and surgical care were discussed. If he chooses non surgical care, he would be bedridden, and have high rate of secondary complications like blood clots, pneumonia, ulcers, fat embolism, and other risks. Specific surgical risks include but are not limited to infection, pain, stiffness, bleeding, delayed mal or nonunion, which would be higher due to his lytic lesion as well as smoking a pack of cigarettes a day, anesthetic complications, blood clots, and other risks. He wished to go ahead with surgery. I did attempt to phone his next of kin, his sister Sherley, but no answer. We signed the consent form for surgery as well as possible need for blood products. Marked the right lower extremity. I have asked him to remain fasting; he has been nothing by mouth since noon today in preparation for surgery. Also, I will have the hospitalist admit him for his medical management and speak with anesthetic team and hospice nurse to determine their opinion on this patient's options and care. Edited 08/11/2019 maanda VACA
[2019-08-11] MEDS ORDERED: HYDROMORPHONE HCL 0.5 MG/ 0.5 ML SYRINGE (J1170 PER 1) IV PRN (16:45)
--- NOTE | 2019-08-11 16:59 | HPEPDOC ---
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 He last ate around 7 or 8 this morning. Dilaudid was administered in the ED, which improved his pain. In the ED, heart rate 110, BP 133/92, at trading well on room air, afebrile. Labs include WBC of 13.3, H&H, plts grossly within normal limits. Sodium 129, chloride 94, creatinine 0.32, GFR greater than 60, CK-MB rel index 4.34 (H), but CK-MD 2.3, tropx11 neg, COVID screen neg. , which includes x-ray of the femur revealing right mid shaft femur fracture with the presence of metastasis, no fractures in the pelvis, chest x- ray reveals acute mass in the RLL with bulky subcarinal, right paratracheal and left mediastinal adenopathy. ROS: 10 point review systems negative except per above. PMH: (Obtained from previous H&P by Dr. 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 EtOH Medications: Reviewed Allergies: NKDA PHYSICAL EXAMINATION: VITAL SIGNS: Please see below. 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 PT/OT eval, case management for DC disposition. #Hyponatremia, appears chronic and improved from previous labs, do gentle hydr ation #metastatic lung CA: Monitor, on hospice DVT ppx: SCD DNR/DNI Dispo: pending Vital Signs Vital Signs Date Time Temp Pulse Resp B/P (MAP) Pulse Ox O2 Delivery O2 Flow Rate FiO2 08/11/19 14:14 18 08/11/19 11:51 97.0 110 133/92 (106) 99 Room Air Laboratory Data Labs 24H Laboratory Tests 2 08/11/19 12:30: Immature Granulocyte % (Auto) 2.8, Neutrophils (%) (Auto) 87.4H, Lymphocytes (%) (Auto) 4.1L, Monocytes (%) (Auto) 5.3H, Eosinophils (%) (Auto) 0.1, Basophils (%) (Auto) 0.3, Neutrophils # (Auto) 11.7H, Lymphocytes # (Auto) 0.6L, Monocytes # (Auto) 0.7, Eosinophils # (Auto) 0.0, Basophils # (Auto) 0.0, Nucleated Red Blood Cells % (auto) 0.0, Anion Gap 9, Glomerular Filtration Rate > 60.0, Calcium Level 9.4, Total Creatine Kinase 53, Creatine Kinase MB 2.3, Creatine Kinase MB Relative Index 4.34H, Troponin I < 0.02 08/11/19 13:54: Coronavirus (COVID-19)(PCR) NEGATIVE CBC/BMP Laboratory Tests 08/11/19 12:30 Home Medications Scheduled Chlorpromazine HCl (Chlorpromazine HCl) 25 Mg Tablet, 25 MG PO QAM Chlorpromazine HCl (Chlorpromazine HCl) 25 Mg Tablet, 100 MG PO QHS Dexamethasone (Dexamethasone) 4 Mg Tablet, 8 MG PO BID Duloxetine HCl (Duloxetine HCl) 60 Mg Capsule.dr, 60 MG PO DAILY Loratadine (Loratadine) 10 Mg Tablet, 10 MG PO DAILY Morphine Sulfate (Morphine Sulfate ER) 30 Mg Tablet.er, 30 MG PO TID Omeprazole (Omeprazole) 40 Mg Capsule.dr, 40 MG PO DAILY Scheduled PRN Albuterol Sulf (Albuterol Sulfate) 2.5 Mg/3 Ml Vial.neb, 2.5 MG INH Q8H PRN for SHORTNESS OF BREATH Bisacodyl (Bisacodyl) 5 Mg Tablet.dr, 5 MG PO DAILY PRN for CONSTIPATION Furosemide (Lasix) 40 Mg Tablet, 40 MG PO DAILY PRN for SWELLING Miscellaneous Medications [Patient Comment] PATIENT'S SISTER KNOWS PATIENT'S MEDICATIONS - WAITING FOR CALL BACK TO VERIFY MEDICATIONS. VERIFIED MEDS WITH PHARMACY, HAVE NOT RECEIVED CALL BACK FROM FAMILY. Allergies Coded Allergies: No Known Drug Allergies (Verified Allergy, Unknown, 07/02/18) A-FIB/CHADSVASC A-FIB History Current/History of A-Fib/PAF?: No ARIELLE AKBAR MD August 11, 2019 16:39
[2019-08-11] MEDS ORDERED: MORP20SO3 PO (17:15)
[2019-08-11] MEDS ORDERED: COLA100C5 PO ×2 (17:15)
[2019-08-11] MEDS ORDERED: SENN18TA PO (17:15)
[2019-08-11] MEDS: NS 1,000 ML IV SCH (17:27)
[2019-08-11 18:00] VITALS: BP 128/91
[2019-08-11] MEDS: HYDROmorphone HCL 2 MG/ML 1ML VIAL (J1170) IV PRN (18:44)
[2019-08-11 19:03] LABS: INR 1.12; PROTHROMBIN TIME 14.1 SECONDS (11.8-14.0)
[2019-08-11 19:04] LABS: PARTIAL THROMBOPLASTIN TIME 24.7 SECONDS (25.0-38.4)
[2019-08-11] MEDS ORDERED: BISACODYL 5 MG TAB PO PRN (19:45)
[2019-08-11] MEDS ORDERED: DOCUSATE SODIUM 100 MG CAP PO SCH (21:00)
[2019-08-11] MEDS ORDERED: chlorproMAZINE 25 MG TAB (Q0161) PO SCH (21:00)
[2019-08-11 22:00] VITALS: BP 127/90
--- NOTE | 2019-08-11 22:05 | IPN ---
DATE: 08/11/2019 CHIEF COMPLAINT: Right pathologic femur fracture. HISTORY OF PRESENT ILLNESS: This 49-year-old man I have been communicating with him and his sister, Sherley, throughout the day and into tonight. He has been seen by the hospitalist, Dr. Haley Mckeon . According to this physician, the patient has a cardiac risk index of 0 points, class 1 risk, medically cleared for surgery. I then spoke with Dr. Leos, the validation analyst, wholesale diamond broker. His impression is that the patient is extremely high risk for surgery and may not overall benefit in terms of the risk profile with going ahead with surgery. I also spoke with Radha Lassiter, the palliative care nurse. In her opinion, the patient is stage IV lung CA who is on hospice care and her assessment is it is not cherry to go ahead with surgery that may offer him little benefit in terms of his ambulation. According to the patient, he is interested in some pain relief and was interested in going ahead with fixation of the femur fracture. The patient cannot be on hospice care and receive surgery of this nature. I talked to wilberto Lepe again this evening at 9:20 p.m., and they had already signed the documentation to come off of hospice care. In my opinion, I think that we should hold off on performing surgery this evening so as to not perform a medically risky surgery late into the evening when there is much debate over whether surgery should even be performed for Mr. Chambers given his late stage lung cancer. Performing fixation of the fracture with TFN/cephalomedullary nail in my estimation would provide him more pain relief in order to stabilize the fracture versus simply bedrest or traction alone. Surgery would be relatively straightforward in terms of technical challenge; however, there may be increased bleeding risk due to his multiple medical comorbidities, smoking, as well as the nature of having a large lytic lesion in his femur. I will give them overnight to think about how they would like me to proceed, and we will be in communication tomorrow throughout the day. I have also gone ahead and removed the Cali's traction setup as that cannot remain on throughout the night without high risk of developing ulcers.
[2019-08-11] MEDS: ONDANSETRON 4MG/2ML VIAL IV PRN (22:18)
[2019-08-11] MEDS: SENNA 8.6 MG TAB (SENOKOT) PO SCH (22:18)
[2019-08-11] MEDS: MORPHINE 30 MG SA TAB PO SCH (22:19)
[2019-08-12] MEDS: HYDROmorphone HCL 2 MG/ML 1ML VIAL (J1170) IV PRN ×4 (01:30→11:50)
[2019-08-12] MEDS: ALBUTEROL SULFATE 2.5 MG/0.5 ML INH NEB SOLN INH SCH ×4 (01:36→19:34)
[2019-08-12 06:00] VITALS: BP 107/72
[2019-08-12 06:10] LABS: HEMATOCRIT 42.6 % (42.0-52.0); HEMOGLOBIN 14.5 g/dl (13.5-17.5); MEAN CORPUSCULAR HEMOGLOBIN 30.3 pg (27.0-33.0); MEAN CORPUSCULAR VOLUME 89.1 fl (80.0-96.0); PLATELET COUNT, AUTOMATED 225 10^3/uL (150-450); RED BLOOD COUNT 4.78 10^6/uL (4.30-6.10); WHITE BLOOD COUNT 14.8 10^3/uL (4.0-10.0)
[2019-08-12] MEDS: ONDANSETRON 4MG/2ML VIAL IV PRN ×4 (06:29→21:47)
[2019-08-12 06:30] LABS: BLOOD UREA NITROGEN 16 MG/DL (7-18); CALCIUM LEVEL 9.4 MG/DL (8.5-10.1); CARBON DIOXIDE LEVEL 24 MEQ/L (21-32); CHLORIDE LEVEL 96 MEQ/L (98-107); CREATININE FOR GFR 0.31 MG/DL (0.70-1.30); GLOMERULAR FILTRATION RATE > 60.0 (>56); GLUCOSE, FASTING 53 MG/DL (70-100); SODIUM LEVEL 131 MEQ/L (136-145)
[2019-08-12] MEDS ORDERED: ceFAZolin SOD 2 GM in IV 1 EA IV ONE (08:00)
[2019-08-12] MEDS: SENNA 8.6 MG TAB (SENOKOT) PO SCH (08:40)
--- NOTE | 2019-08-12 08:57 | ECGEPIP ---
[facility] - ED Test Date: 2019-08-11 Pat Name: SUGEY TOMLINSON Department: Room: - Gender: Male Captain Assistant: : 1970 Requested By: GLENN BUITRAGO Order Number: [id number] Reading MD: Latesha Villalta Measurements Intervals [place] Rate: 108 P: 69 IN: 145 QRS: 75 QRSD: 80 T: 58 QT: 334 QTc: 448 Interpretive Statements SINUS TACHYCARDIA POSSIBLE RIGHT ATRIAL ENLARGEMENT LEFT ATRIAL ENLARGEMENT MINIMAL ST DEPRESSION DECREASED RATE 05/15/19 Electronically Signed on 08-12-2019 8:56:54 EDT by Latesha Villalta
[2019-08-12] MEDS ORDERED: LORATADINE 10 MG TAB PO SCH (09:00)
[2019-08-12] MEDS ORDERED: DOCUSATE SODIUM 100 MG CAP PO SCH (09:00)
[2019-08-12] MEDS ORDERED: chlorproMAZINE 25 MG TAB (Q0161) PO SCH (09:00)
--- NOTE | 2019-08-12 11:07 | DS.PDOC ---
Discharge Summary General Date of Admission August 11, 2019 at 16:34 Date of Discharge 08/14/19 Discharge Summary PROCEDURES PERFORMED DURING STAY: None. ADMITTING DIAGNOSES: 1. R Femur fx. DISCHARGE DIAGNOSES: 1. R femur fx COMPLICATIONS/CHIEF COMPLAINT: Cancer Related Pain, Femur Fracture Right. HISTORY OF PRESENT ILLNESS/ HOSPITAL COURSE: Patient is a 49-year-old male with PMH of metastatic lung cancer with poorly differentiated adenocarcinoma, emphysema, chronic HTN, GERD, LDH, who is currently on hospice presenting with fall while getting into the bathtub resulting in right femur fracture. He was seen in the ED and was administered Dilaudid for pain improvement. Orthopedic evaluated patient for possible repair. Upon review of revised cardiac risk index, patient was a 0 risk and medically clear for surgery, however, due to his underlying lung condition, he would prove to be high risk if undergoing anesthesia. Upon further discussion with patient and sister, he elected to not have surgery. He last ate around 7 or 8 this morning. Dilaudid was administered in the ED, which improved his pain. In the ED, heart rate 110, BP 133/92, at trading well on room air, afebrile. Labs include WBC of 13.3, H&H, plts grossly within normal limits. Sodium 129, chloride 94, creatinine 0.32, GFR greater than 60, CK-MB rel index 4.34 (H), but CK-MD 2.3, tropx11 neg, COVID screen neg. , which includes x-ray of the femur revealing right mid shaft femur fracture with the presence of metastasis, no fractures in the pelvis, chest x-ray reveals acute mass in the RLL with bulky subcarinal, right paratracheal and left mediastinal adenopathy. Was subsequently controlled on fentanyl gtt, and hospice medications. Patient has to say on 08/14/2019, I pronounced him at 9:53 AM. Patient was identified is DNR/DNI, MANAGER TRAVEL. Patient was not responsive to both verbal and tactile stimuli. Bilateral eyes were dilated and not lorri, no heart rate or respiratory breaths are perceived, bilateral pulses were not intact, patient was pronounced on 08/14/2019 and 9:53 AM. Family and nursing staff was notified. DISCHARGE MEDICATIONS: Please see below. ALLERGIES: Please see below. PHYSICAL EXAMINATION ON DISCHARGE: See above: pronouncement note LABORATORY DATA: Please see below. 32 minutes were spent on discharge planning and coordination. Vital Signs/I&Os Vital Signs Date Time Temp Pulse Resp B/P (MAP) Pulse Ox O2 Delivery O2 Flow Rate FiO2 08/12/19 08:40 20 08/12/19 06:00 97.7 124 107/72 (84) 88 Room Air I&O- Last 24 Hours up to 6 AM 08/12/19 06:00 Intake Total 0 ml Output Total 650 ml Balance -650 ml Laboratory Data Labs 24H Laboratory Tests 2 08/11/19 12:30: Immature Granulocyte % (Auto) 2.8, Neutrophils (%) (Auto) 87.4H, Lymphocytes (%) (Auto) 4.1L, Monocytes (%) (Auto) 5.3H, Eosinophils (%) (Auto) 0.1, Basophils (%) (Auto) 0.3, Neutrophils # (Auto) 11.7H, Lymphocytes # (Auto) 0.6L, Monocytes # (Auto) 0.7, Eosinophils # (Auto) 0.0, Basophils # (Auto) 0.0, Nucleated Red Blood Cells % (auto) 0.0, Anion Gap 9, Glomerular Filtration Rate > 60.0, Calcium Level 9.4, Total Creatine Kinase 53, Creatine Kinase MB 2.3, Creatine Kinase MB Relative Index 4.34H, Troponin I < 0.02 08/11/19 13:54: Coronavirus (COVID-19)(PCR) NEGATIVE 08/11/19 18:31: Prothrombin Time 14.1H, Prothromb Time International Ratio 1.12, Activated Partial Thromboplast Time 24.7L 08/12/19 05:57: Nucleated Red Blood Cells % (auto) 0.0, Anion Gap 11, Glomerular Filtration Rate > 60.0, Calcium Level 9.4 CBC/BMP Laboratory Tests 08/11/19 12:30 08/12/19 05:57 Discharge Medications Scheduled Albuterol Sulf (Albuterol Sulfate) 2.5 Mg/3 Ml Vial.neb, 2.5 MG INH TID, (Reported) Chlorpromazine HCl (Chlorpromazine HCl) 25 Mg Tablet, 25 MG PO QAM, (Reported) Chlorpromazine HCl (Chlorpromazine HCl) 25 Mg Tablet, 50 MG PO QHS, (Reported) Dexamethasone (Dexamethasone) 4 Mg Tablet, 4 MG PO BID, (Reported) Docusate Sodium (Colace) 100 Mg Capsule, 200 MG PO DAILY, (Reported) Docusate Sodium (Colace) 100 Mg Capsule, 100 MG PO QHS, (Reported) Duloxetine HCl (Duloxetine HCl) 60 Mg Capsule.dr, 60 MG PO DAILY, (Reported) Loratadine (Loratadine) 10 Mg Tablet, 10 MG PO DAILY, (Reported) Morphine Sulfate (Morphine Sulfate ER) 30 Mg Tablet.er, 30 MG PO TID, (Reported) 0900/1700/0100 Omeprazole (Omeprazole) 40 Mg Capsule.dr, 40 MG PO DAILY, (Reported) Senna (Senna Lax) 8.6 Mg Tablet, 2 TAB PO BID, (Reported) Scheduled PRN Bisacodyl (Bisacodyl) 5 Mg Tablet.dr, 5 MG PO DAILY PRN for CONSTIPATION, (Reported) Morphine Sulfate (Morphine Sulfate) 100 Mg/5 Ml Solution, 0.75 ML PO Q1H PRN for PAIN, (Reported) Allergies Coded Allergies: No Known Drug Allergies (Verified Allergy, Unknown, 07/02/18) ARIELLE AKBAR MD August 12, 2019 11:02
[2019-08-12] MEDS: MORPHINE 30 MG SA TAB PO SCH (11:25)
[2019-08-12] MEDS: NS 1,000 ML IV SCH (12:54)
--- NOTE | 2019-08-12 14:11 | IPNPDOC ---
Date Seen The patient was seen on 08/12/19. 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 He last ate around 7 or 8 this morning. Dilaudid was administered in the ED, which improved his pain. In the ED, heart rate 110, BP 133/92, at trading well on room air, afebrile. Labs include WBC of 13.3, H&H, plts grossly within normal limits. Sodium 129, chloride 94, creatinine 0.32, GFR greater than 60, CK-MB rel index 4.34 (H), but CK-MD 2.3, tropx11 neg, COVID screen neg. , which includes x-ray of the femur revealing right mid shaft femur fracture with the presence of metastasis, no fractures in the pelvis, chest x-ray reveals acute mass in the RLL with bulky subcarinal, right paratracheal and left mediastinal adenopathy. Patient was initially scheduled for repair to help with his pain, however, be a high-risk intubation. Subsequently decided not to undergo the operation. After speaking with both hospice and sister, will keep patient here in the hospital for pain control, and start fentanyl drip, no Dilaudid drip on the floor. Discussed with pharmacy PHYSICAL EXAMINATION: VITAL SIGNS: Please see below. 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, emphysema, chronic HTN, GERD, LDH, who is currently on hospice presenting with R mid shaft femur fracture secondary to metastasis and fall #RLE femur fx: placed orders for pain control #Hyponatremia, appears chronic and improved from previous labs, no additional labs at this time due to hospice status #metastatic lung CA: Monitor, on hospice DVT ppx: SCD DNR/DNI, EDI CONSULTANT Dispo: pending 32 minutes spent on care coordination VS, I&O, 24H, Fishbone Vital Signs/I&O Vital Signs Date Time Temp Pulse Resp B/P (MAP) Pulse Ox O2 Delivery O2 Flow Rate FiO2 08/12/19 12:00 12 08/12/19 06:00 97.7 124 107/72 (84) 88 Room Air I&O- Last 24 Hours up to 6 AM 08/12/19 06:00 Intake Total 0 ml Output Total 650 ml Balance -650 ml Laboratory Data 24H LABS Laboratory Tests 2 08/11/19 18:31: Prothrombin Time 14.1H, Prothromb Time International Ratio 1.12, Activated Partial Thromboplast Time 24.7L 08/12/19 05:57: Nucleated Red Blood Cells % (auto) 0.0, Anion Gap 11, Glomerular Filtration Rate > 60.0, Calcium Level 9.4 CBC/BMP Laboratory Tests 08/12/19 05:57 ARIELLE AKBAR MD August 12, 2019 14:11
[2019-08-12] MEDS ORDERED: ATROPINE SULFATE 1% OP SOLN 2 ML BTL SL PRN (14:45)
[2019-08-12] MEDS: fentaNYL CITRATE 1,000 MCG in NS 80 ML IV SCH (15:17)
--- NOTE | 2019-08-12 15:57 | IPN ---
DATE: 08/12/2019 CHIEF COMPLAINT: Right pathologic femur fracture and end-stage metastatic lung cancer (CA). HISTORY OF PRESENT ILLNESS: I have been in communication with Andre and his sister, Sherley, over the last day and half in regard to his right-sided pathologic femur fracture. Although it is an option to perform intramedullary nailing of his femur fracture for palliative care only and for pain control, after a long discussion with the niece, anesthesiologist here, as well as the hospice nurses and Andre's family, it has been decided today to go ahead with comfort measures only. According to his sister, Jose, one of the hospice nurses, was also in communication with the patient today, and it has been decided to go ahead with comfort measures only. ASSESSMENT AND PLAN: For now we will remove Andre from the surgery pending slate, and he will be comfort measures only, as discussed with the patient and multiple other people. If there is any change, I will continue to be rounding and available to consult.
[2019-08-12] MEDS: LORazepam 2 MG/ML VIAL (J2060) IV PRN ×2 (16:50→21:47)
[2019-08-13] MEDS: LORazepam 2 MG/ML VIAL (J2060) IV PRN ×2 (01:21→23:38)
[2019-08-13] MEDS: HYDROmorphone HCL 2 MG/ML 1ML VIAL (J1170) IV PRN ×6 (02:11→21:31)
[2019-08-13] MEDS: ALBUTEROL SULFATE 2.5 MG/0.5 ML INH NEB SOLN INH SCH ×3 (07:08→20:00)
[2019-08-13] MEDS: NS 1,000 ML IV SCH (07:26)
[2019-08-13] MEDS: fentaNYL CITRATE 1,000 MCG in NS 80 ML IV SCH (08:11)
[2019-08-13] MEDS ORDERED: SCOPOLAMINE 1MG TRANSDERMAL PATCH TOP SCH (09:00)
--- NOTE | 2019-08-13 14:52 | IPNPDOC ---
Date Seen The patient was seen on 08/13/19. 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 He last ate around 7 or 8 this morning. Dilaudid was administered in the ED, which improved his pain. In the ED, heart rate 110, BP 133/92, at trading well on room air, afebrile. Labs include WBC of 13.3, H&H, plts grossly within normal limits. Sodium 129, chloride 94, creatinine 0.32, GFR greater than 60, CK-MB rel index 4.34 (H), but CK-MD 2.3, tropx1 neg, COVID screen neg. , which includes x-ray of the femur revealing right mid shaft femur fracture with the presence of metastasis, no fractures in the pelvis, chest x- ray reveals acute mass in the RLL with bulky subcarinal, right paratracheal and left mediastinal adenopathy. Pt was initially scheduled for repair to help with this pain, however, due to high risk intubation, pt, family, and team decided not to undergo the procedure. After speaking with both hospice and sister, we'll resume with hospice pain control on fentanyl drip. No o/n events, pain controlled, will change status to inpt. PHYSICAL EXAMINATION: VITAL SIGNS: Please see below. 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, emphysema, chronic HTN, GERD, LDH, who is currently on hospice presenting with R mid shaft femur fracture secondary to metastasis and fall #RLE femur fx: placed orders for pain control, fentanyl gtt, hospice protocol, family req for scopolamine patch #Hyponatremia, appears chronic and improved from previous labs, no additional labs at this time due to hospice status #metastatic lung CA: Monitor, on hospice DVT ppx: SCD DNR/DNI, WHITEWASHER Dispo: pending, will be DC'd from hospital when VS, I&O, 24H, Fishbone Vital Signs/I&O Vital Signs Date Time Temp Pulse Resp B/P (MAP) Pulse Ox O2 Delivery O2 Flow Rate FiO2 08/13/19 09:00 2.0 08/13/19 06:00 98.6 08/13/19 05:29 20 08/12/19 06:00 124 107/72 (84) 88 Room Air I&O- Last 24 Hours up to 6 AM 08/13/19 06:00 Intake Total 1493 ml Output Total 300 ml Balance 1193 ml ARIELLE AKBAR MD August 13, 2019 14:49
[2019-08-14] MEDS: HYDROmorphone HCL 2 MG/ML 1ML VIAL (J1170) IV PRN ×2 (01:29→05:09)
[2019-08-14] MEDS: fentaNYL CITRATE 1,000 MCG in NS 80 ML IV SCH (02:02)
[2019-08-14] MEDS: NS 1,000 ML IV SCH (04:33)
[2019-08-14] MEDS: LORazepam 2 MG/ML VIAL (J2060) IV PRN (06:24)
[2019-08-14] MEDS: ALBUTEROL SULFATE 2.5 MG/0.5 ML INH NEB SOLN INH SCH (07:34)
== END 2019-08-14 09:30 | disposition expired ==
LOC: M ED 11:42 → EDBD 11:42 → M ED INP 16:34 → ENRESERV 16:44 → M MS5PR 17:10
PROVIDERS: ADMIT Family Medicine; ATTEND Family Medicine
DX: M84.551A Pathological fracture in neoplastic disease, right femur, initial encounter for fracture (principal); C78.00 Secondary malignant neoplasm of unspecified lung; E87.1 Hypo-osmolality and hyponatremia; R29.6 Repeated falls; F32.9 Major depressive disorder, single episode, unspecified; F20.0 Paranoid schizophrenia; F10.11 Alcohol abuse, in remission; I10 Essential (primary) hypertension; J43.9 Emphysema, unspecified; M47.815 Spondylosis without myelopathy or radiculopathy, thoracolumbar region; K21.9 Gastro-esophageal reflux disease without esophagitis; E78.5 Hyperlipidemia, unspecified; Z79.899 Other long term (current) drug therapy; Z79.891 Long term (current) use of opiate analgesic; Z11.59 Encounter for screening for other viral diseases
CPT/HCPCS: 36415; 71046; 73502; 73552; 80048; 82550; 82553; 85025; 85027; 85610; 85730; 86850; 86900; 86901; 93005; 93041; 94760; 96372; 96374; 96375; 96376; 99285; J1170; J2060; J2405; J3010; Q0161; U0002